=== PATIENT | female | born 2000 | race Caucasian/White ===

== ENCOUNTER → 2020-06-14 09:28 | Outpatient (CLI) | payer BC, SELFPAY ==
[2020-06-14 10:34] LABS: hCG Titer Quant., Serum 5197 mIU/mL (1-3)
== END ==
PROVIDERS: Referring Provider Obstetrics & Gynecology; Visit Provider Obstetrics & Gynecology
DX: O46.90 Antepartum hemorrhage, unspecified, unspecified trimester (principal); Z3A.00 Weeks of gestation of pregnancy not specified
CPT/HCPCS: 36415; 84702

== ENCOUNTER → 2020-06-14 14:46 | Outpatient (CLI) | payer BC, SELFPAY ==
--- NOTE | 2020-06-14 14:48 | US_ITS ---
STUDY: FIRST TRIMESTER OBSTETRICAL ULTRASOUND REASON FOR EXAM: Female, 20 years old. . Bleeding. Evaluate for . LMP: Unknown. TECHNIQUE: Transvaginal PRIOR ULTRASOUND: None. FINDINGS: There is fluid in the endometrial canal which contains a rounded echogenic structure. This may represent an early gestational sac and yolk sac. However, no pole is identified. The uterus measures 10.4 x 5.8 x 5.4 cm. There is no demonstrated uterine fibroid. The cervix is closed. The right ovary measures 2.9 x 2.5 x 2.4 cm. There is no right ovarian cyst. There is no visualized right adnexal mass or complex lesion. The left ovary measures 2.3 x 2.0 x 1.3 cm. There is no left ovarian cyst. There is no visualized left adnexal mass or complex lesion. There is no fluid in the cul de sac. US/Transvaginal w/Preg US IMPRESSION: Questionable early gestational sac and yolk sac, but no pole is identified. Therefore, there is no definite intrauterine gestation identified. No adnexal mass identified. These findings may be due to an early intrauterine gestation, a nonvisualized ectopic or a spontaneous . Follow-up sonography and beta hCG levels are recommended. Electronically Signed: Scott Castro MD at 16:27 EST Tel , Service support ,
== END ==
PROVIDERS: Referring Provider Obstetrics & Gynecology; Visit Provider Obstetrics & Gynecology
DX: O20.0 Threatened abortion (principal); Z3A.00 Weeks of gestation of pregnancy not specified
CPT/HCPCS: 76817

== ENCOUNTER → 2020-06-16 09:13 | Outpatient (CLI) | payer BC, SELFPAY ==
[2015-05-23 11:31] VITALS: BMI 28.1
[2020-06-16 10:09] LABS: hCG Titer Quant., Serum 8226 mIU/mL (1-3)
== END ==
PROVIDERS: Referring Provider Obstetrics & Gynecology; Visit Provider Obstetrics & Gynecology
DX: O46.90 Antepartum hemorrhage, unspecified, unspecified trimester (principal); Z3A.00 Weeks of gestation of pregnancy not specified
CPT/HCPCS: 36415; 84702

== ENCOUNTER → 2020-06-29 14:22 | Outpatient (CLI) | payer BC, SELFPAY ==
[2015-05-23 11:31] VITALS: BMI 28.1
--- NOTE | 2020-06-29 14:25 | US_ITS ---
STUDY: FIRST TRIMESTER OBSTETRICAL ULTRASOUND REASON FOR EXAM: Female, 20 years old viability LMP: 05/10/2020. TECHNIQUE: Transabdominal TECHNICAL QUALITY: Adequate. PRIOR ULTRASOUND: Comparison is made with prior examination dated 06/14/2020. FINDINGS: There is visualization of a single gestational sac in a normal intrauterine position. The mean sac diameter (MSD) measures 2.3 cm, indicating an estimated gestational age (EGA) of 7 weeks, 3 days. The gestational sac shape is within normal limits. There is a visualized yolk sac. The yolk sac measures 5.8 mm. The placenta is non-visualized. There is visualization of a live embryo. The crown-rump length (CRL) measures 1.08 cm, indicating an estimated gestational age (EGA) of 7 weeks, 2 days. There is demonstrated cardiac activity with a heart rate of 141 bpm. The estimated gestation age (EGA) by LMP is 7 weeks, 1 days. The estimated date of delivery (ANTIONE) by LMP is 02/14/2021. The estimated gestation age (EGA) by US is 7 weeks, 3 days. The estimated date of delivery (ANTIONE) by US is 02/12/2021. The uterus measures 11 cm x 6.4 cm x 5.4 cm. There is no demonstrated uterine fibroid. The cervix is closed. There is evidence of flow to adjacent subchorionic bleed. The larger measures 2 cm x 2.1 cm x 0.7 cm. The right ovary measures 2.8 cm x 2.2 cm x 2.5 cm. There is no right ovarian cyst. There is no visualized right adnexal mass or complex lesion. The left ovary measures 3 cm x 2.1 cm x 1.7 cm. There is no left ovarian cyst. There is no visualized left adnexal mass or complex lesion. There is no fluid in the cul de sac. US/Transvaginal w/Preg US IMPRESSION: Single live intrauterine gestation with a mean gestational age of 7 weeks and 3 days. 2. Small adjacent subchorionic bleed. Electronically Signed: Cassius Dinero MD at 15:54 EDT , Service support ,
== END ==
PROVIDERS: Referring Provider Obstetrics & Gynecology; Visit Provider Obstetrics & Gynecology
DX: O20.0 Threatened abortion (principal); Z3A.01 Less than 8 weeks gestation of pregnancy
CPT/HCPCS: 76817

== ENCOUNTER → 2020-07-06 12:17 | Outpatient (CLI) | payer BC, SELFPAY ==
--- NOTE | 2020-07-06 12:22 | US_ITS ---
STUDY: FIRST TRIMESTER OBSTETRICAL ULTRASOUND REASON FOR EXAM: Female, 20 years old viability LMP: 05/10/2020 TECHNIQUE: Transvaginal TECHNICAL QUALITY: Adequate. PRIOR ULTRASOUND: Comparison is made with prior study 06/29/2020. FINDINGS: There is visualization of a single gestational sac in a normal intrauterine position. The mean sac diameter (MSD) measures 3.04 cm, indicating an estimated gestational age (EGA) of 8 weeks, 3 days. The gestational sac shape is within normal limits. There is a visualized yolk sac. The yolk sac measures 5.6 mm. The placenta is non-visualized. There is visualization of a live embryo. The crown-rump length (CRL) measures 2.11 cm, indicating an estimated gestational age (EGA) of 8 weeks, 6 days. There is demonstrated cardiac activity with a heart rate of 164 bpm. The estimated gestation age (EGA) by LMP is 8 weeks, 1 days. The estimated date of delivery (ANTIONE) by LMP is 02/14/2021. The estimated gestation age (EGA) by US is 8 weeks, 5 days. The estimated date of delivery (ANTIONE) by US is 02/10/2021. The uterus measures 10.8 cm x 7.5 cm x 6.0 cm. There is no demonstrated uterine fibroid. The cervix is closed. There is evidence of 2 adjacent subchorionic hematoma. The larger subchorionic bleed measures 1.6 times by 2.8 cm x 1.4 cm. The right ovary measures 2 cm x 2.6 cm x 1.8 cm. There is no right ovarian cyst. There is no visualized right adnexal mass or complex lesion. The left ovary measures 2 cm x 1.9 cm x 1.8 cm. There is no left ovarian cyst. There is no visualized left adnexal mass or complex lesion. There is no fluid in the cul de sac. US/Transvaginal w/Preg US IMPRESSION: Single live intrauterine gestation with a mean gestational age of 8 weeks and 5 days. There are 2 small subchorionic hematoma. Electronically Signed: Cassius Dinero MD at 15:33 EDT , Service support ,
== END ==
PROVIDERS: Referring Provider Obstetrics & Gynecology; Visit Provider Obstetrics & Gynecology
DX: O36.80X0 Pregnancy with inconclusive fetal viability, not applicable or unspecified (principal); Z3A.08 8 weeks gestation of pregnancy
CPT/HCPCS: 76817

== ENCOUNTER → 2020-07-14 12:39 | Outpatient (CLI) | payer BC, SELFPAY ==
--- NOTE | 2020-07-14 12:39 | US_ITS ---
INDICATION: recheck subchorionic bleeds EXAMINATION: US OB Less Than 14 Weeks TECHNIQUE: Transvaginal (for optimal evaluation of the adnexa) pelvic ultrasound was performed. Grayscale, spectral waveform, and color flow Doppler evaluation of the adnexa. COMPARISON: 07/06/2020 FINDINGS: UTERUS: Measures 11.3 x 8 x 6.4 cm. RIGHT OVARY: Measures 3.9 x 1.8 x 2 cm. Normal. LEFT OVARY: Measures 3.2 x 2 x 1.6 cm. Normal. FREE FLUID: None. INTRAUTERINE GESTATIONAL SAC(s) (size/shape): Single. Measures 4 cm. YOLK SAC: Identified POLE: Identified CRL measures 3.3 cm. ESTIMATED GESTATION AGE: 9 weeks 4 days. HEART MOTION: 171 bpm. PLACENTA: Not visualized due to age. SUBCHORIONIC HEMORRHAGE: Increased size subchorionic hemorrhage near the fundus measures 2.7 x 2.2 x 1.4 cm, previously 1.5 x 1.4 x 0.8 cm. Decreased size of subchorionic hemorrhage near the internal os measures 2.4 x 1.9 x 0.4 cm, previously 2.8 x 1.4 x 1.6 cm. AMNIOTIC FLUID: Qualitatively normal. US/Init OB < 14Wks US IMPRESSION: Increased size of moderate subchorionic hematoma near the fundus. Slightly decreased size of small subchorionic hematoma near the internal os/cervical canal. Electronically Signed: Michael Hammond MD at 22:35 EDT Tel , Service support ,
== END ==
PROVIDERS: Referring Provider Obstetrics & Gynecology; Visit Provider Obstetrics & Gynecology
DX: O41.8X90 Other specified disorders of amniotic fluid and membranes, unspecified trimester, not applicable or unspecified (principal); O46.8X9 Other antepartum hemorrhage, unspecified trimester; Z3A.00 Weeks of gestation of pregnancy not specified
CPT/HCPCS: 76801

== ENCOUNTER → 2020-07-20 10:02 | Outpatient (CLI) | payer BC, SELFPAY ==
[2020-07-20 09:25] VITALS: BMI 32.8
[2020-07-20 10:42] LABS: Absolute Lymphocyte Count 1.79 X10^3/uL (0.83-4.51); Absolute Neutrophil Count 6.3 X10^3/uL (2.0-7.7); Basophil# 0.04 X10^3/uL; Basophil% 0.5 % (0-1); Eosinophil# 0.03 X10^3/uL; Eosinophils% 0.4 % (0-5); Hematocrit 36.9 % (37-47); Hemoglobin 12.9 g/dL (12.0-15.0); Lymphocyte # 1.79 X10^3/ul (0.83-4.51); Lymphocyte % 20.9 % (19-41); Mean Corpuscular Hgb 32.6 pg (27.0-32.0); Mean Corpuscular Volume 93.2 fL (81-99); Mean Platelet Vol. 9.5 fl (6.2-12.0); Monocyte# 0.35 X10^3/uL; Monocyte% 4.1 % (0-10); NRBC Flagged by Analyzer 0 % (0-5); Neutrophil # 6.31 X10^3/uL (2.7-7.7); Neutrophil % 73.6 % (47-70); Platelet Count 374 K/mm3 (150-450); RBC Distribution Width CV 11.4 % (11.6-14.6); RBC Distribution Width SD 38.5 fl (35.1-43.9); Red Blood Count 3.96 M/mm3 (4.2-5.4); White Blood Count 8.6 K/mm3 (4.4-11.0)
[2020-07-20 11:13] LABS: Glucose Challenge Gest 1H 50g 113 mg/dL (70-140)
[2020-07-20 11:31] LABS: NATERA MAILED SPECIMEN
[2020-07-20 11:56] LABS: HIV - WCH Non-Reactive (Nonreactive); Hepatitis B Surface Antigen Non-Reactive (Nonreactive); Hepatitis C Antibody Non-Reactive (Nonreactive); Rubella IgG Reactive (Nonreactive); Syphilis Antibodies Non-reactive
[2020-07-20 18:04] LABS: Amphetamine Urine VISTA NEGATIVE (<1000 ng/mL); Barbiturate Urine VISTA NEGATIVE (< 200 ng/mL); Benzodiazepine Urine VISTA NEGATIVE (< 200 ng/mL); Cocaine Urine VISTA NEGATIVE (< 300 ng/mL); Ecstacy Urine VISTA NEGATIVE (< 500 ng/mL); Methadone Urine VISTA NEGATIVE (< 300 ng/mL); PCP Urine VISTA NEGATIVE (< 25 ng/mL); THC Urine VISTA NEGATIVE (< 50 ng/mL); Vista UDS pH Range 6
== END ==
PROVIDERS: Referring Provider Obstetrics & Gynecology; Visit Provider Obstetrics & Gynecology
DX: O99.211 Obesity complicating pregnancy, first trimester (principal); E66.9 Obesity, unspecified; Z3A.00 Weeks of gestation of pregnancy not specified
CPT/HCPCS: 36415; 80307; 82950; 85025; 86703; 86762; 86780; 86803; 86850; 86900; 86901; 87086; 87088; 87340

== ENCOUNTER → 2020-11-10 08:39 | Outpatient (CLI) | payer MEDICAID, SELFPAY ==
[2020-10-13 14:50] VITALS: BMI 32.6
[2020-11-10 09:07] LABS: Absolute Lymphocyte Count 3.02 X10^3/uL (0.83-4.51); Basophil# 0.06 X10^3/uL; Basophil% 0.5 % (0-1); Eosinophil# 0.18 X10^3/uL; Eosinophils% 1.5 % (0-5); Hematocrit 35.4 % (37-47); Hemoglobin 12.4 g/dL (12.0-15.0); Lymphocyte # 3.02 X10^3/ul (0.83-4.51); Lymphocyte % 25.1 % (19-41); Mean Corpuscular Hgb 32.5 pg (27.0-32.0); Mean Corpuscular Volume 92.9 fL (81-99); Mean Platelet Vol. 10.2 fl (6.2-12.0); Monocyte# 0.67 X10^3/uL; Monocyte% 5.6 % (0-10); NRBC Flagged by Analyzer 0 % (0-5); Neutrophil % 66.6 % (47-70); Platelet Count 336 K/mm3 (150-450); RBC Distribution Width SD 40.8 fl (35.1-43.9); Red Blood Count 3.81 M/mm3 (4.2-5.4)
[2020-11-10 09:14] LABS: Glucose Challenge Gest 1H 50g 95 mg/dL (70-140)
== END ==
PROVIDERS: Referring Provider Obstetrics & Gynecology; Visit Provider Obstetrics & Gynecology
DX: Z34.80 Encounter for supervision of other normal pregnancy, unspecified trimester (principal); Z13.1 Encounter for screening for diabetes mellitus
CPT/HCPCS: 36415; 82950; 85025

== ENCOUNTER 2020-12-24 17:40 | Outpatient (CLI) | payer MEDICAID, SELFPAY ==
[2020-12-24 17:45] VITALS: BMI 34.7
[2020-12-24 17:50] VITALS: BP 133/92; PULSE 85
[2020-12-24 17:54] VITALS: BP 133/92; PULSE 85; TEMP 36.6
[2020-12-24 18:01] VITALS: BP 124/79; PULSE 81
[2020-12-24 18:01] LABS: ROM Internal Control Test YES-OK TO RESULT pt. (Internal QC)
[2020-12-24 18:21] LABS: ROM Patient Test Negative (Negative)
--- NOTE | 2020-12-25 09:54 | OB.TRI.PN_ITS ---
Progress Notes Date of Service: 12/24/20 Progress Note: Patient presents for triage evaluation secondary to loss of fluid. ROM negative. Not germaine. FHT: Moderate variability reactive no decelerations category I tracing [place]: No Contractions Assessment and plan: Reactive NST, reassuring maternal and status patient discharged to home to follow-up at next scheduled visit. See problem list details for additional plan information. Laboratory Studies: Laboratory Tests 12/24/20 Range/Units 17:56 Vag Amniotic Fld Detect Negative (Negative) Charges/Coding Procedures Urinary/Genital 52xxx-59xxx: 20732-07 non-stress test Interp
== END 2020-12-24 18:45 | disposition home or self-care (01) ==
LOC: WPOUT 17:41 → WP 17:42
PROVIDERS: Visit Provider Obstetrics & Gynecology
DX: O42.90 Premature rupture of membranes, unspecified as to length of time between rupture and onset of labor, unspecified weeks of gestation (principal); Z3A.00 Weeks of gestation of pregnancy not specified
CPT/HCPCS: 59025; 59050; 84112; 99218; G0378

== ENCOUNTER → 2020-12-29 10:26 | Outpatient (CLI) | payer MEDICAID, SELFPAY ==
[2020-12-29 11:01] LABS: Absolute Lymphocyte Count 2.46 X10^3/uL (0.83-4.51); Absolute Neutrophil Count 7.2 X10^3/uL (2.0-7.7); Basophil# 0.04 X10^3/uL; Basophil% 0.4 % (0-1); Eosinophil# 0.09 X10^3/uL; Eosinophils% 0.9 % (0-5); Hematocrit 36.2 % (37-47); Hemoglobin 12.7 g/dL (12.0-15.0); Lymphocyte # 2.46 X10^3/ul (0.83-4.51); Lymphocyte % 23.6 % (19-41); Mean Corp Hgb Conc 35.1 g/dL (32-36); Mean Corpuscular Hgb 32.6 pg (27.0-32.0); Mean Corpuscular Volume 93.1 fL (81-99); Mean Platelet Vol. 11.5 fl (6.2-12.0); Monocyte# 0.53 X10^3/uL; Monocyte% 5.1 % (0-10); NRBC Flagged by Analyzer 0 % (0-5); Neutrophil # 7.21 X10^3/uL (2.7-7.7); Neutrophil % 69.2 % (47-70); Platelet Count 267 K/mm3 (150-450); RBC Distribution Width CV 12.1 % (11.6-14.6); RBC Distribution Width SD 41.1 fl (35.1-43.9); Red Blood Count 3.89 M/mm3 (4.2-5.4); White Blood Count 10.4 K/mm3 (4.4-11.0)
[2020-12-29 11:32] LABS: ALB/GLOB Ratio 0.6 RATIO (0.9-2.4); AST(SGOT) 19 U/L (15-37); Alanine Aminotransfer ALT/SGPT 17 U/L (13-56); Albumin, Serum 2.5 g/dL (3.2-5.0); Alkaline Phosphatase 116 U/L (45-117); Anion Gap 7 (5-15); BUN 7 mg/dL (7-18); BUN/Creat Ratio 10.7 RATIO (10-20); Calcium,Total 9.1 mg/dL (8.5-10.1); Chloride 108 mmol/L (98-107); Creatinine, Serum 0.65 mg/dL (0.55-1.02); EST Glomerular Filtration Rate 122 mL/min (>60); Est Glom Filt Rate - Afr Amer 147 mL/min (>60); Globulin 4.2 g/dL (2.2-4.2); Glucose 97 mg/dL (74-106); Potassium 3.7 mmol/L (3.5-5.1); Protein, Total 6.7 g/dL (6.4-8.2); Sodium Level 137 mmol/L (136-145)
[2020-12-29 17:32] LABS: Protein, Urine (Random) 44.7 mg/dL (<11.9); Protein:Creat Ratio 253 mg/g CRE (0-200)
== END ==
PROVIDERS: Visit Provider Obstetrics & Gynecology
DX: O16.3 Unspecified maternal hypertension, third trimester (principal); Z3A.00 Weeks of gestation of pregnancy not specified
CPT/HCPCS: 36415; 80053; 82570; 84156; 85025

== ENCOUNTER 2021-01-02 17:55 | Outpatient (CLI) | payer MEDICAID, SELFPAY ==
[2021-01-02] VITALS (10 sets, daily range): BP systolic 132–166; BP diastolic 72–104; PULSE 61–75; TEMP 36.1; O2SAT 98; BMI 38.5
[2021-01-02 18:56] LABS: Hematocrit 35.9 % (37-47); Hemoglobin 12.9 g/dL (12.0-15.0); Mean Corp Hgb Conc 35.9 g/dL (32-36); Mean Corpuscular Hgb 33.3 pg (27.0-32.0); Mean Corpuscular Volume 92.8 fL (81-99); Mean Platelet Vol. 11.4 fl (6.2-12.0); Platelet Count 257 K/mm3 (150-450); RBC Distribution Width CV 12.2 % (11.6-14.6); RBC Distribution Width SD 41.3 fl (35.1-43.9); Red Blood Count 3.87 M/mm3 (4.2-5.4); White Blood Count 10.6 K/mm3 (4.4-11.0)
[2021-01-02 18:57] LABS: Protein, Urine (Random) 75.1 mg/dL (<11.9); Protein:Creat Ratio 381 mg/g CRE (0-200)
[2021-01-02 19:22] LABS: AST(SGOT) 19 U/L (15-37); Alanine Aminotransfer ALT/SGPT 16 U/L (13-56); EST Glomerular Filtration Rate 133 mL/min (>60); Est Glom Filt Rate - Afr Amer 161 mL/min (>60); Estimated Creatinine Clearance 112.86 ml/min; Uric Acid 6.8 mg/dL (2.6-6.0)
[2021-01-02] MEDS: Acetaminophen 500 MG Tablet 1000 MG PO (20:06)
[2021-01-02] MEDS: Betamethasone/Betamethasone 30 MG/5 ML Vial 12 MG IM (20:06)
[2021-01-02] MEDS: NIFEdipine 30 MG Tablet PO (21:48)
[2021-01-02 23:10] LABS: Group B Strep DNA By PCR POSITIVE (Negative); Probe Check PASS
[2021-01-03] VITALS (8 sets, daily range): BP systolic 123–134; BP diastolic 68–75; PULSE 65–80; TEMP 36.3–36.4; O2SAT 97
[2021-01-03 00:55] LABS: Chlamydia Trachomatis by PCR Negative (Negative); Neisserai gonorrhoeae by PCR Negative (Negative); Probe Check PASS; Sample Adequacy Control PASS; Specimen Processing Control PASS
[2021-01-03 05:52] LABS: Hematocrit 37.5 % (37-47); Mean Corp Hgb Conc 34.7 g/dL (32-36); Mean Corpuscular Hgb 33.6 pg (27.0-32.0); Mean Corpuscular Volume 96.9 fL (81-99); Mean Platelet Vol. 11.6 fl (6.2-12.0); Platelet Count 270 K/mm3 (150-450); RBC Distribution Width CV 12.2 % (11.6-14.6); RBC Distribution Width SD 42.5 fl (35.1-43.9); Red Blood Count 3.87 M/mm3 (4.2-5.4)
[2021-01-03 06:08] LABS: Protein, Urine (Random) 33.3 mg/dL (<11.9); Protein:Creat Ratio 300 mg/g CRE (0-200)
[2021-01-03 06:08] LABS: AST(SGOT) 21 U/L (15-37); Alanine Aminotransfer ALT/SGPT 16 U/L (13-56); EST Glomerular Filtration Rate 96 mL/min (>60); Est Glom Filt Rate - Afr Amer 117 mL/min (>60); Estimated Creatinine Clearance 84.65 ml/min; Uric Acid 6.8 mg/dL (2.6-6.0)
--- NOTE | 2021-01-03 07:32 | OB.TRI.HP_ITS ---
HPI - General HPI Narrative YRN HAN, is a 20 F who presents with elevated blood pressure. She has also had some intermittent headache and right upper quadrant pain. Upon evaluation in triage she had elevated blood pressures in the mild range and headache resolved with Tylenol. She does have preeclampsia based on blood pressures and elevated urine protein creatinine ratio. Maternal Data Information ANTIONE Calculator Estimated Delivery Date Method Current WG Current Estimate 02/09/21 Ultrasound #1 34w 5d PFSH PFSH Home Medications [id number] 1 each PO BID 05/13/15 [History Last Taken 01/01/21 21:00] blood pressure monitor #1 ea 12/29/20 [Rx Last Taken Unknown] nifedipine 30 mg tablet,extended release 24 hr 30 mg PO DAILY #30 tab 01/02/21 [Rx Last Taken Unknown] Allergy/AdvReac Type Severity Reaction Status Date / Time sulfamethoxazole Allergy Intermediate Rash Verified 01/02/21 18:05 [From Bactrim] trimethoprim [From Bactrim] Allergy Intermediate Rash Verified 01/02/21 18:05 Family History Mother Diabetes Surgical History History of tonsillectomy Social History adopted: No household members: [facility] number [facility] children: 2 current occupational status: employed current occupation: [employer] pets and animals: Yes history of recent travel: No sexually active: Yes Smoking Status: Never smoker second hand exposure: Yes alcohol intake: never substance use type: does not use seatbelt use: always do you feel safe at home: Yes additional social history: [place]- [employer]- [employer] (son Antonio age 4) History 2 Elective abortions Hx Para 1 Spontaneous abortions Hx # Term Pregnancies Ectopic pregnancies Hx # Pregnancies Multiple births # of living children 1 Past Pregnancies Del. Date Name GA/Weeks Outcome Route Bth Weight Gen Labor Lgth Anesthesia Del Locatn Provider FOB 05/23/15 [place] 38 live - full term 7lbs 14oz Female 9 hours epidural [facility] Delivery Date: 05/23/15 Nuchal cord x two reduced Darcy Ferrara Visit Details Expected Delivery Route/Plan Labor Preferences- CB/BF classes: no labor support person: Rajesh labor intervention preferences: [] pain management options preferred: epidural cut cord/dad catch: yes : no PP control planned: discussed possible routes of delivery and associated risks: [] special requests: [] Plans covid status: non immune flu vaccine: [] tdap vaccine: given rhogam: na LARC form signed: yes Problem list reviewed and updated with the most current plan of care details and appropriate orders placed. Relevant counseling for the gestational age provided. Continue routine care and follow up unless otherwise noted in visit notes/problem list details OB Flowsheet Initial Weight: 191 lb Date -?-?-?-?-?-?-?-?-?-?-?-?- EGA Weight BP Urine Prot -?-?-?--?-?-?-?-?-?-?-?-?- Glucose FHR FuHt Pres Dilation -?-?-?-?-?-?-?-?-?--?-?-?- Effaced St Visit Note 07/20/20 -?-?-?-?-?-?-?-?-?-?-?-?- 10w 6d 191 lb 2 oz (+2 oz) 110/82 -?-?-?-?-?-?-?-?-?-?-?-?- 165 -?-?-?-?-?-?-?-?-?-?-?-?- SM- SC hematoma 8mm x 1 cm, crl cons and fht present 08/18/20 -?-?-?-?-?-?-?-?-?-?-?-?- 15w 0d 190 lb 6 oz (-10 oz) 120/86 -?-?-?-?-?-?-?-?-?-?-?-?- 150 -?-?-?-?-?-?-?-?-?-?-?-?- GP - no cramping or bleeding. Anatomy ordered. 09/15/20 -?-?-?-?-?-?-?-?-?-?-?-?- 19w 0d 189 lb (-2 lb) 122/80 Negative -?-?-?-?-?-?-?-?-?-?-?-?- Negative 150 -?-?-?-?-?-?-?-?-?-?-?-?- SM- no vb lof cr amping 10/13/20 -?-?-?-?-?-?-?-?-?-?-?-?- 23w 0d 191 lb (+0 oz) 118/80 Negative -?-?-?-?-?-?-?-?-?-?-?-?- Negative 145 -?-?-?-?-?-?-?-?-?-?-?-?- Sm- no vb crampi ng anatomy reviewed 11/10/20 -?-?-?-?-?-?-?-?-?-?-?-?- 27w 0d 196 lb 4 oz (+5 lb 4 oz) 120/82 Negative -?-?-?-?-?-?-?-?-?-?-?-?- Negative 155 27 -?-?-?-?-?-?-?-?-?-?-?-?- GP - no LOF, VB, DFM, ctx. 28w labs done and nl. 12/07/20 -?-?-?-?-?-?-?-?-?-?-?-?- 30w 6d 199 lb 6 oz (+8 lb 6 oz) 116/72 Negative -?-?-?-?-?-?-?-?-?-?-?-?- Negative 155 30 -?-?-?-?-?-?-?-?-?-?-?-?- MH-No VB, LOF. Good FM. Larc 12/29/20 -?-?-?-?-?-?-?-?-?-?-?-?- 34w 0d 208 lb 2 oz (+17 lb 2 oz) 144/94 Trace -?-?-?-?-?-?-?-?-?-?-?-?- Negative 130 34 -?-?-?-?-?-?-?-?-?-?-?-?- GP - no LOF, VB, DFM, ctx. BP elevated. BP cuff sent to pharmacy. PreE labs ordered. 01/02/21 -?-?-?-?-?-?-?-?-?-?-?-?- 34w 4d 203 lb 11.314 oz (+12 lb 11.314 oz) 150/104 155/98 154/98 156/103 165/90 151/85 166/94 132/72 141/72 123/68 134/71 124/72 -?-?-?-?-?-?-?-?-?-?-?-?- -?-?-?-?-?-?-?-?-?-?-?-?- Physical Exam Const alert, oriented x3 and no apparent distress HEENT Head and Scalp: normocephalic and atraumatic Eyes EOMs intact bilaterally Neck full ROM and no lymphadenopathy Chest inspection of chest normal Resp normal respiratory effort GI GI Narrative: gravid, abdomen nontender, AGA Neuro no focal motor deficits Motor Exam: clonus absent NST FHR Rate Baby A Baseline: 140 Variability:: Moderate Accelerations:: 15 x 15 Decelerations:: None NST Reactive:: Yes FHR Category:: Category I Uterine Activity:: no regular Assessment & Plan (1) Pre-eclampsia in third trimester: COMMENT: Diagnosed 34 weeks. Celestone given 01/02-. Procardia 30 mg XL. Precautions reviewed. Plan twice weekly visits with weekly NST and weekly blood pressure in office with labs. Deliver at 37 weeks. PLAN: Patient monitored overnight and blood pressures within normal range on Procardia, patient asymptomatic and reassuring NST. Plan DC home follow-up for second dose of Celestone tonight (2) : QUALIFIERS: Weeks of gestation: 34 weeks Qualified Code(s): Z3A.34 - 34 weeks gestation of COMMENT: NIPT- low risk male, declined carrier and ntd screening. nl anatomy (3) Supervision of other normal : COMMENT: PRR ANTIONE: 02/09/21 PC: [place] Beltranance: Rajesh PC: Antonio age 4 Charges/Coding Procedures Urinary/Genital 52xxx-59xxx: 70175-96 non-stress test Interp Multi Select Codes Visit Charges Office Visit/Consults: 90035 OV L3 Est
--- NOTE | 2021-01-03 08:00 | US_ITS ---
STUDY: SECOND AND THIRD TRIMESTER OBSTETRICAL ULTRASOUND - LIMITED REASON FOR EXAM: Female, 20 years old Pre-e -- Growth US LMP: 05/05/2020 PRIOR ULTRASOUND: Comparison is made with prior study 07/14/2020. TECHNIQUE: Transabdominal TECHNICAL QUALITY: Adequate. FINDINGS: There is a single intrauterine fetus. The fetus is in a cephalic presentation. There is demonstrated cardiac activity with a heart rate of 142 bpm. There is a normal amniotic fluid volume. The largest amniotic fluid pocket measures 3.4 cm x 4.3 cm. The amniotic fluid index (BOONE) is 12.34 cm. The placenta is anterior in location and is not low lying. There are Grade 2 placental changes. The cervix measures 3.1 cm in length. BIOMETRY: BPD: 8.57 cm: 34 weeks, 3 days HC: 30.52 cm: 33 weeks, 6 days AC: 30.41 cm: 34 weeks, 2 days FL: 6.71 cm: 30 weeks, 3 days Age by LMP: 34 weeks, 5 days. ANTIONE by LMP: 02/09/2021. age by prior US: 34 weeks, 5 days. ANTIONE by prior US: 02/09/2021. age by current US: 33 weeks, 6 days. ANTIONE by current US: 02/15/2021. Estimated weight: 2459 grams, +/- 369 grams, 41.4 percentile. US/OB Limited With Biometrics IMPRESSION: Single live uterine gestation with a mean gestational age of 34 weeks and 5 days. The measurements obtained today fall within normal expected range. Electronically Signed: Cassius Dinero MD at 8:58 EDT , Service support ,
== END 2021-01-03 09:24 | disposition home or self-care (01) ==
LOC: WPOUT 18:00 → WP 18:00
PROVIDERS: Visit Provider Obstetrics & Gynecology
DX: O14.93 Unspecified pre-eclampsia, third trimester (principal); O26.893 Other specified pregnancy related conditions, third trimester; R10.11 Right upper quadrant pain; Z3A.34 34 weeks gestation of pregnancy
CPT/HCPCS: 36415; 59025; 59050; 76816; 82565; 82570; 84156; 84450; 84460; 84550; 85027; 87491; 87591; 87653; 96372; 99218; G0378; J0702

== ENCOUNTER 2021-01-03 19:50 | Outpatient (CLI) | payer MEDICAID, SELFPAY ==
[2021-01-03 19:59] VITALS: BMI 36.3
[2021-01-03] MEDS: Betamethasone/Betamethasone 30 MG/5 ML Vial 12 MG IM (20:22)
--- NOTE | 2021-01-04 18:11 | OB.TRI.PN ---
Progress Notes Date of Service: 01/03/21 Progress Note: celestone given for prematurity Assessment & Plan (1) Pre-eclampsia in third trimester: COMMENT: Diagnosed 34 weeks. Celestone given 01/02-. Procardia 30 mg XL. Precautions reviewed. Plan twice weekly visits with weekly NST and weekly blood pressure in office with labs. Deliver at 37 weeks.
== END 2021-01-03 20:25 | disposition home or self-care (01) ==
LOC: WPOUT 19:56 → WP 19:57
PROVIDERS: Referring Provider Obstetrics & Gynecology; Visit Provider Obstetrics & Gynecology
DX: O14.93 Unspecified pre-eclampsia, third trimester (principal); Z3A.00 Weeks of gestation of pregnancy not specified
CPT/HCPCS: 96372; 99218; G0378; J0702

== ENCOUNTER → 2021-01-05 16:07 | Outpatient (CLI) | payer MEDICAID, SELFPAY ==
[2021-01-05 16:48] LABS: Protein, Urine (Random) 83.5 mg/dL (<11.9); Protein:Creat Ratio 207 mg/g CRE (0-200)
== END ==
PROVIDERS: Referring Provider Obstetrics & Gynecology; Visit Provider Obstetrics & Gynecology
DX: O14.93 Unspecified pre-eclampsia, third trimester (principal); Z3A.00 Weeks of gestation of pregnancy not specified
CPT/HCPCS: 82570; 84156

== ENCOUNTER 2021-01-10 18:15 | Inpatient (IN) | payer MEDICAID, SELFPAY ==
[2021-01-10] VITALS (43 sets, daily range): BP systolic 124–155; BP diastolic 80–105; PULSE 76–115; RESP 16–18; TEMP 36.6–37.3; O2SAT 93–98; BMI 36.1
[2021-01-10 09:33] LABS: Absolute Neutrophil Count 8.6 X10^3/uL (2.0-7.7); Basophil# 0.06 X10^3/uL; Basophil% 0.5 % (0-1); Eosinophil# 0.07 X10^3/uL; Eosinophils% 0.5 % (0-5); Hematocrit 37.2 % (37-47); Hemoglobin 13.1 g/dL (12.0-15.0); Lymphocyte % 25.9 % (19-41); Mean Corp Hgb Conc 35.2 g/dL (32-36); Mean Corpuscular Hgb 33.2 pg (27.0-32.0); Mean Corpuscular Volume 94.2 fL (81-99); Mean Platelet Vol. 11.2 fl (6.2-12.0); Monocyte# 0.63 X10^3/uL; Monocyte% 4.9 % (0-10); NRBC Flagged by Analyzer 0 % (0-5); Neutrophil # 8.55 X10^3/uL (2.7-7.7); Neutrophil % 67.3 % (47-70); Platelet Count 294 K/mm3 (150-450); RBC Distribution Width SD 41.1 fl (35.1-43.9); Red Blood Count 3.95 M/mm3 (4.2-5.4); White Blood Count 12.7 K/mm3 (4.4-11.0)
[2021-01-10 09:48] LABS: ALB/GLOB Ratio 0.6 RATIO (0.9-2.4); AST(SGOT) 21 U/L (15-37); Alanine Aminotransfer ALT/SGPT 17 U/L (13-56); Albumin, Serum 2.7 g/dL (3.2-5.0); Alkaline Phosphatase 130 U/L (45-117); Anion Gap 8 (5-15); BUN 11 mg/dL (7-18); BUN/Creat Ratio 15.2 RATIO (10-20); Calcium,Total 8.9 mg/dL (8.5-10.1); Chloride 107 mmol/L (98-107); Creatinine, Serum 0.72 mg/dL (0.55-1.02); EST Glomerular Filtration Rate 108 mL/min (>60); Est Glom Filt Rate - Afr Amer 131 mL/min (>60); Globulin 4.2 g/dL (2.2-4.2); Glucose 103 mg/dL (74-106); Potassium 3.5 mmol/L (3.5-5.1); Protein, Total 6.9 g/dL (6.4-8.2); Sodium Level 139 mmol/L (136-145)
[2021-01-10 11:24] LABS: Protein, Urine (Random) 80.2 mg/dL (<11.9); Protein:Creat Ratio 642 mg/g CRE (0-200)
[2021-01-10] MEDS: Metoclopramide 10 MG Tablet PO (16:49)
[2021-01-10] MEDS: DiphenhydrAMINE 25 MG Capsule PO (16:49)
[2021-01-10] MEDS: Lactated Ringers 1,000 ML 50 ML IV (18:50)
[2021-01-10] MEDS: Magnesium Sulfate 4gm/100mL 4 GM/100 ML IV.SOLN. IV (18:53)
[2021-01-10 19:04] LABS: Absolute Lymphocyte Count 2.91 X10^3/uL (0.83-4.51); Absolute Neutrophil Count 7.4 X10^3/uL (2.0-7.7); Basophil# 0.05 X10^3/uL; Basophil% 0.4 % (0-1); Eosinophil# 0.04 X10^3/uL; Eosinophils% 0.4 % (0-5); Hematocrit 35.5 % (37-47); Hemoglobin 12.7 g/dL (12.0-15.0); Lymphocyte # 2.91 X10^3/ul (0.83-4.51); Lymphocyte % 25.9 % (19-41); Mean Corp Hgb Conc 35.8 g/dL (32-36); Mean Corpuscular Hgb 33.7 pg (27.0-32.0); Mean Corpuscular Volume 94.2 fL (81-99); Mean Platelet Vol. 11.5 fl (6.2-12.0); Monocyte# 0.68 X10^3/uL; Monocyte% 6.1 % (0-10); NRBC Flagged by Analyzer 0 % (0-5); Neutrophil # 7.44 X10^3/uL (2.7-7.7); Neutrophil % 66.3 % (47-70); Platelet Count 288 K/mm3 (150-450); RBC Distribution Width CV 12.1 % (11.6-14.6); RBC Distribution Width SD 41.7 fl (35.1-43.9); Red Blood Count 3.77 M/mm3 (4.2-5.4); White Blood Count 11.2 K/mm3 (4.4-11.0)
[2021-01-10] MEDS: Magnesium Sulfate 4gm/100mL 2 GM/50 ML IV.SOLN. IV (19:17)
--- NOTE | 2021-01-10 19:20 | HP.PCM.OB_ITS ---
HPI - General General Date of Admission: 01/10/21 HPI Narrative YRN HAN, is a 20 F at 35 weeks 5 days who presents with elevated blood pressure and persistent headache in spite of Tylenol, Reglan, and Benadryl. Patient admitted for induction of labor for preeclampsia with severe features. Reports headache, denies vision changes, chest pain, shortness of breath, right upper quadrant, epigastric pain. Maternal Data Information ANTIONE Calculator Estimated Delivery Date Method Current WG Current Estimate 02/09/21 Ultrasound #1 35w 5d PFSH PFSH Medical History Positive GBS test Home Medications [id number] acid 1 each PO BID 05/13/15 [History Last Taken 01/09/21 20:00 1] blood pressure monitor #1 ea 12/29/20 [Rx Last Taken Unknown] nifedipine 30 mg tablet,extended release 24 hr 30 mg PO DAILY #30 tab 01/02/21 [Rx Last Taken 01/10/21 12:30 30 mg] Allergy/AdvReac Type Severity Reaction Status Date / Time sulfamethoxazole Allergy Intermediate Rash Verified 01/10/21 08:40 [From Bactrim] trimethoprim [From Bactrim] Allergy Intermediate Rash Verified 01/10/21 08:40 Family History Mother Diabetes Surgical History History of tonsillectomy Social History adopted: No household members: family housing: [place] number of children: 2 current occupational status: employed current occupation: [employer] pets and animals: Yes history of recent travel: No sexually active: Yes Smoking Status: Never smoker second hand exposure: Yes alcohol intake: never substance use type: does not use seatbelt use: always do you feel safe at home: Yes additional social history: Mary Lou Mena- [employer] (son Antonio age 4) History 2 Elective abortions Hx Para 1 Spontaneous abortions Hx # Term Pregnancies Ectopic pregnancies Hx # Pregnancies Multiple births # of living children 1 Past Pregnancies Del. Date Name GA/Weeks Outcome Route Bth Weight Gen Labor Lgth Anesthesia Del Locataj Provider FOB 05/23/15 Alexandria 38 live - full term 7lbs 14oz Female [facility] Delivery Date: 05/23/15 Nuchal cord x two reduced Darcy Ferrara Visit Details Expected Delivery Route/Plan Labor Preferences- CB/BF classes: no labor support person: Rajesh labor intervention preferences: [] pain management options preferred: epidural cut cord/dad catch: yes : no PP control planned: discussed possible routes of delivery and associated risks: [] special requests: [] Plans covid status: non immune flu vaccine: [] tdap vaccine: given rhogam: na LARC form signed: yes Problem list reviewed and updated with the most current plan of care details and appropriate orders placed. Relevant counseling for the gestational age provided. Continue routine care and follow up unless otherwise noted in visit notes/problem list details OB Flowsheet Initial Weight: 191 lb Date -?-?-?-?-?-?-?-?-?-?-?-?- EGA Weight BP Urine Prot -?-?-?-?-?-?-?-?-?-?-?-?- Glucose FHR FuHt Pres Dilation -?-?-?-?-?-?-?-?-?-?-?-?- Effaced St Visit Note 07/20/20 -?-?-?-?-?-?-?-?-?-?-?-?- 10w 6d 191 lb 2 oz (+2 oz) 110/82 -?-?-?-?-?-?-?-?-?-?-?-?- 165 -?-?-?-?-?-?-?-?-?-?-?-?- SM- SC hematoma 8mm x 1 cm, crl cons and fht present 08/18/20 -?-?-?-?-?-?-?-?-?-?-?-?- 15w 0d 190 lb 6 oz (-10 oz) 120/86 -?-?-?-?-?-?-?-?-?-?-?-?- 150 -?-?-?-?-?-?-?-?-?-?-?-?- GP - no cramping or bleeding. Anatomy ordered. 09/15/20 -?-?-?-?-?-?-?-?-?-?-?-?- 19w 0d 189 lb (-2 lb) 122/80 Negative -?-?-?-?-?-?-?-?-?-?-?-?- Negative 150 -?-?-?-?-?-?-?-?-?-?-?-?- SM- no vb lof cr amping 10/13/20 -?-?-?-?-?-?-?-?-?-?-?-?- 23w 0d 191 lb (+0 oz) 118/80 Negative -?-?-?-?-?-?-?-?-?-?-?-?- Negative 145 -?-?-?-?-?-?-?-?-?-?-?-?- Sm- no vb crampi ng anatomy reviewed 11/10/20 -?-?-?-?-?-?-?-?-?-?-?-?- 27w 0d 196 lb 4 oz (+5 lb 4 oz) 120/82 Negative -?-?-?-?-?-?-?-?-?-?-?-?- Negative 155 27 -?-?-?-?-?-?-?-?-?-?-?-?- GP - no LOF, VB, DFM, ctx. 28w labs done and nl. 12/07/20 -?-?-?-?-?-?-?-?-?-?-?-?- 30w 6d 199 lb 6 oz (+8 lb 6 oz) 116/72 Negative -?-?-?-?-?-?-?-?-?-?-?-?- Negative 155 30 -?-?-?-?-?-?-?-?-?-?-?-?- MH-No VB, LOF. Good FM. Larc 12/29/20 -?-?-?-?-?-?-?-?-?-?-?-?- 34w 0d 208 lb 2 oz (+17 lb 2 oz) 144/94 Trace -?-?-?-?-?-?-?-?-?-?-?-?- Negative 130 34 -?-?-?-?-?-?-?-?-?-?-?-?- GP - no LOF, VB, DFM, ctx. BP elevated. BP cuff sent to pharmacy. PreE labs ordered. 01/02/21 -?-?-?-?-?-?-?-?-?-?-?-?- 34w 5d 203 lb 11.314 oz (+12 lb 11.314 oz) 150/104 155/98 154/98 156/103 165/90 151/85 166/94 132/72 141/72 123/68 134/71 124/72 124/75 -?-?-?-?-?-?-?-?-?-?-?-?- -?-?-?-?-?-?-?-?-?-?-?-?- 01/05/21 -?-?-?-?-?-?-?-?-?-?-?-?- 35w 0d 213 lb 4 oz (+22 lb 4 oz) 130/96 1+ -?-?-?-?-?-?-?-?-?-?-?-?- Negative 135 35 -?-?-?-?-?-?-?-?-?-?-?-?- GP - no LOF, VB, DFM, ctx. Denies VILLATORO, VC, chest pain, SOB. To start 2x/wk NSTs next week. 01/10/21 -?-?-?-?-?-?-?-?-?-?-?-?- 35w 5d 213 lb 6 oz (+22 lb 6 oz) 148/102 118/82 2+ -?-?-?-?-?-?-?-?-?-?-?-?- Negative 130 140 35 -?-?-?-?-?-?-?-?-?-?-?-?- GP - no LOF, VB, DFM, ctx. NST reactive. No VILLATORO, VC, CP, SOB. PreE labs ordered today. 01/10/21 -?-?-?-?-?-?-?-?-?-?-?-?- 35w 5d 204 lb (+13 lb) 138/95 137/88 124/80 151/95 142/93 134/89 135/98 141/98 155/95 146/91 149/91 149/95 149/95 153/97 153/97 -?-?--?-?-?-?-?-?-?-?-?-?- -?-?-?-?-?-?-?-?-?-?-?-?- NST FHR Rate Baby A Baseline: 120 Variability:: Moderate Accelerations:: 15 x 15 Decelerations:: None NST Reactive:: Yes FHR Category:: Category I Uterine Activity:: irritability ROS Eyes Eyes: Reports systems reviewed and no addt'l complaints, except as documented ENT HEENT: Reports systems reviewed and no addt'l complaints, except as documented Cardiovascular Cardiovascular: Reports systems reviewed and no addt'l complaints, except as documented Respiratory/Chest Respiratory/Chest: Reports systems reviewed and no addt'l complaints, except as documented Gastrointestinal Gastrointestinal: Reports systems reviewed and no addt'l complaints, except as documented Genitourinary Genitourinary: Reports systems reviewed and no addt'l complaints, except as documented Musculoskeletal Musculoskeletal: Reports systems reviewed and no addt'l complaints, except as documented Integumentary Integumentary: Reports systems reviewed and no addt'l complaints, except as documented Neurologic Neurologic: Reports systems reviewed and no addt'l complaints, except as documented Psychiatric Psychiatric: Reports systems reviewed and no addt'l complaints, except as documented Endocrine Endocrinology: Reports systems reviewed and no addt'l complaints, except as documented Hematologic/Lymphatic Hematologic/Lymphatic: Reports systems reviewed and no addt'l complaints, except as documented Allergic/Immunologic Allergic/Immunologic: Reports systems reviewed and no addt'l complaints, except as documented Vital Signs Vital Signs Vital Signs: 01/10/21 16:22 01/10/21 16:27 01/10/21 16:37 Pulse Rate 98 93 91 Blood Pressure 138/95 H 137/88 H 124/80 H BP Systolic 138 137 124 BP Diastolic 95 88 80 01/10/21 16:53 01/10/21 17:07 01/10/21 17:22 Pulse Rate 83 88 90 Blood Pressure 151/95 H 142/93 H 134/89 H BP Systolic 151 142 134 BP Diastolic 95 93 89 01/10/21 17:37 01/10/21 17:53 01/10/21 18:49 Pulse Rate 90 86 82 Blood Pressure 135/98 H 141/98 H 155/95 H BP Systolic 135 141 155 BP Diastolic 98 98 95 01/10/21 18:52 01/10/21 19:07 Pulse Rate 77 95 Blood Pressure 146/91 H 149/95 H BP Systolic 146 149 BP Diastolic 91 95 Weight Weight: 204 lb Body Mass Index (BMI) 36.1 Physical Exam Const alert, oriented x3, no apparent distress, average body habitus, healthy appearing and well nourished HEENT normocephalic and moist oral mucous membranes Head and Scalp: atraumatic Eyes PERRL and EOMs intact bilaterally Neck full ROM Resp normal respiratory effort, no retractions and no use of accessory muscles Cardio regular rate and regular rhythm GI soft to palpation, non-tender and non-distended Manual OB Exam: dilated 2, effaced 50 and station -3 Extremity normal to inspection and full ROM Skin no rashes or lesions noted Neuro no focal motor deficits and no sensory deficits noted Psych mental status grossly normal, affect normal, speech normal and activity/motor behavior normal Labs Labs Labs: Blood Type O POSITIVE Antibody Screen NEGATIVE Hct 35.5 % (37-47) L Hgb 12.7 g/dL (12.0-15.0) Obstetrics US Syphilis Total Ab Non-reactive VZV IgG Antibody 289 index (Immune >165) Rubella IgG Antibody Reactive (Nonreactive) Hep Bs Antigen Non-Reactive (Nonreactive) HIV 1&2 Antibody Non-Reactive (Nonreactive) C.trachomatis DNA (PCR) Negative (Negative) Glucose 1 Hr 50 gm 95 mg/dL (70-140) Group B Strep DNA POSITIVE (Negative) H Rhogam given: No Assessment & Plan (1) : QUALIFIERS: Weeks of gestation: 35 weeks Qualified Code(s): Z3A.35 - 35 weeks gestation of COMMENT: NIPT- low risk male, declined carrier and ntd screening. nl anatomy (2) Supervision of other normal : COMMENT: PRR ANTIONE: 02/09/21 PC: Alexandria Ross: Rajesh PC: Antonio age 4 (3) Pre-eclampsia in third trimester: COMMENT: Diagnosed 34 weeks. Celestone given 01/02-. Procardia 30 mg XL. Precautions reviewed. Plan twice weekly visits with weekly NST and weekly blood pressure in office with labs. Deliver at 37 weeks. PLAN: Presented to triage with persistent headache and worsening elevated blood pressures at home Patient had taken Tylenol and caffeine prior to arrival and was given Reglan and Benadryl without relief Blood pressures persistently mild range after arrival Patient diagnosed with preeclampsia with severe features Preeclampsia labs done earlier in the day were normal aside from elevated protein to creatinine ratio Magnesium sulfate started for seizure prophylaxis (4) Positive GBS test: COMMENT: PCN in labor (5) Encounter for induction of labor: PLAN: Patient presents IOL, plan management for with cytotec then pitocin/AROM. Pain management: plans epidural. GBS positive - PCN to start when starting pitocin. Management of any complications: none I have reviewed the ON LICENSE OF [facility] and made any clinically relevant updates.
[2021-01-10] MEDS: Magnesium Sulfate 20 GM/500 ML BAG IV (19:28)
[2021-01-10] MEDS: miSOPROStol 25 MCG TABLET VAGINAL (19:52)
[2021-01-10] MEDS: Acetaminophen 500 MG Tablet PO (20:10)
[2021-01-11] VITALS (107 sets, daily range): BP systolic 104–156; BP diastolic 53–101; PULSE 61–123; RESP 16–24; TEMP 36.1–36.9; O2SAT 96–100
[2021-01-11] MEDS: miSOPROStol 25 MCG TABLET PO (00:36)
[2021-01-11] MEDS: Lactated Ringers 1,000 ML 50 ML IV (01:59)
[2021-01-11] MEDS: Ondansetron 4 MG/2 ML Vial IV (02:31)
[2021-01-11] MEDS: 0.9% Saline Lock 10 ML Syringe IV (02:31)
[2021-01-11] MEDS: Oxytocin 30 units/NS 500 ml 30 UNITS/500 ML IV.SOLN IV (05:07)
[2021-01-11] MEDS: Magnesium Sulfate 20 GM/500 ML BAG IV ×3 (05:08→22:55)
[2021-01-11] MEDS: Penicillin G 3,000,000 Units 50 ML 100 UNITS IV ×3 (08:58→17:34)
[2021-01-11] MEDS: Lactated Ringers 500 ML 999 ML IV ×2 (12:40→14:14)
[2021-01-11] MEDS: NIFEdipine 30 MG Tablet PO (12:44)
[2021-01-11] MEDS: fentaNYL-bupivacaine (epidural) 100 ML BAG EPIDURAL ×2 (13:27→18:20)
[2021-01-11] MEDS: Amnioinfusion- 0.9% NS 1,000 ML IV.SOLN. 1000 ML INTRA-UTER (14:20)
[2021-01-11] MEDS: Lactated Ringers 1,000 ML 200 ML IV (15:25)
--- NOTE | 2021-01-11 16:44 | NURSING ---
1620 IV decreased to allow for fluid restriction and po intake
[2021-01-11] MEDS: Oxytocin 30 units/NS 500 ml 30 UNITS/500 ML IV.SOLN 334 UNITS IV (21:22)
--- NOTE | 2021-01-11 21:28 | EX.PCM.OBRPT ---
Assessment & Plan (1) Spontaneous vaginal delivery: (2) Encounter for induction of labor: (3) Positive GBS test: COMMENT: PCN in labor (4) Pre-eclampsia in third trimester: COMMENT: Diagnosed 34 weeks. Celestone given 01/02-. Procardia 30 mg XL. Precautions reviewed. Plan twice weekly visits with weekly NST and weekly blood pressure in office with labs. Deliver at 37 weeks. (5) Supervision of other normal : COMMENT: PRR ANTIONE: 02/09/21 PC: Alexandria Ross: Rajesh PC: Antonio age 4 (6) : QUALIFIERS: Weeks of gestation: 35 weeks Qualified Code(s): Z3A.35 - 35 weeks gestation of COMMENT: NIPT- low risk male, declined carrier and ntd screening. nl anatomy Maternal Data Information ANTIONE Calculator Estimated Delivery Date Method Current WG Current Estimate 02/09/21 Ultrasound #1 35w 6d Vaginal Delivery Maternal Presentation Maternal Presentation: Medically Indicated Induction Maternal Presentation: 20-year-old G2, P1 at 35 weeks gestation admitted for induction of labor for preeclampsia with severe features due to headache. Patient was induced with Cytotec followed by Pitocin. Type of Induction: Pitocin and Cytotec Medical Reason for Induction: Preeclampsia, eclampsia Operative Information Date of Procedure: 01/11/21 Pre-Operative Diagnosis: Intrauterine at 35 weeks gestation, preeclampsia with severe features Post-Operative Diagnosis: Same Surgery / Procedure Performed: Spontaneous Vaginal Delivery Type of Anesthesia: Epidural Drain: Boykin to straight drain Estimated Blood Loss: 100 Findings Description of Procedure: Patient began pushing and delivered the head in the JULIA presentation. The head was delivered atraumatically and loose nuchal cord x1 was noted and delivered through. The anterior and posterior shoulders delivered without complication followed by the rest of the infant and the infant was placed on the maternal abdomen. Delayed cord clamping was employed for approximately 60 seconds. Cord was clamped and cut and gentle traction was applied to the cord and the placenta delivered spontaneously immediately following it was noted to be intact with three-vessel cord. The perineum and vagina were inspected and noted to have no laceration. EBL was 100 cc. Patient and infant tolerated delivery well. Presentation: Vertex and JULIA Amniotic Membrane Rupture Type: Spontaneous Amniotic Fluid Description: Clear Placental Delivery Description: Spontaneous Placenta Disposition: [facility] Cord Vessel Description: 3 Vessels Cord Entanglement: Around neck x 1, loose Nuchal Cord Compression: Without compression Cord Gases: ABG and VBG Infant A Gender: Male Delayed Cord Clamping: No Post Vaginal Delivery Medications Given After Delivery: IV Pitocin Episiotomy Description: None Laceration: None Complication Complications: None Admit VTE Documentation VTE Present on Admission: No Procedures Urinary/Genital [id number]: [id number] Vaginal Delivery+PP Care([facility])
--- NOTE | 2021-01-11 21:35 | PCM.DC ---
Discharge Instructions Diet Discharge Diet: No restrictions Activity Discharge Activity: Return to Normal Activity, May Not Drive (while taking narcotic pain medications.) and May Shower May resume sexual activity in: 4-6 weeks Dressing / Incision Call your doctor if your incision/area has: Continuous Slow Oozing, Sudden Increased Bleeding, Increased Pain/ Swelling, Increased Redness and Foul Smelling Discharge Follow Up Care When: Call to make an appointment with your doctor in 6 weeks. If you had elevated Blood Pressure or 4th degree laceration you will need to be seen in 2 weeks. Test Results: Test results from this visit will be discussed in further detail at your follow-up appointment, if applicable. Discharge Plan Admission Admit Date/Time: 01/10/21 18:15 Attending Provider: Dianna Keith Primary Care Provider: Care PhysicianAleida Primary Instructions Patient Instructions: After a Vaginal Discharge Orders/Prescriptions Prescriptions: New ibuprofen 800 mg tablet 800 mg PO Q8H PRN (Reason: pain) Qty: 60 RF: 1 Continued (DME) blood pressure monitor Kit See Rx Instructions .ROUTE .MEDSUPPLY Qty: 1 RF: 0 [id number] acid 1 EACH tablet 1 each PO BID RF: 0 nifedipine [Procardia XL] 30 mg tablet extended release 24hr 30 mg PO DAILY Qty: 30 RF: 1 Referrals / Follow Up: Care Physician,Aleida Primary [Primary Care Provider] -
[2021-01-11] MEDS: miSOPROStol 200 MCG Tablet 1000 MCG RC (21:42)
[2021-01-11] MEDS: Carboprost Tromethamine 250 MCG/ML Ampul IM (21:46)
[2021-01-12] VITALS (48 sets, daily range): BP systolic 116–141; BP diastolic 66–94; PULSE 6–205; RESP 16–24; TEMP 36.6–37.4; O2SAT 83–99
[2021-01-12] MEDS: Lactated Ringers 1,000 ML 25 ML IV (00:50)
--- NOTE | 2021-01-12 01:00 | NURSING ---
pt taken over to SCN via wheelchair pushed by support person while this RN pushed IV pole, pt tolerated well, SCN RN to call this RN when pt done in SCN
--- NOTE | 2021-01-12 01:18 | NURSING ---
late entry charting due to pt care
[2021-01-12] MEDS: Magnesium Sulfate 20 GM/500 ML BAG IV ×2 (08:01→18:10)
--- NOTE | 2021-01-12 08:48 | PCM.PN.OB ---
Subjective Subjective Patient doing well without complaints. Tolerating PO. Ambulating and voiding without difficulty. Breast feeding well. Denies chest pain, shortness of breath, calf pain/swelling, fevers, chills, lightheadedness. Objective Data Objective Data Vital Signs: Vital Signs Temp Pulse Resp BP Pulse Ox 99.2 F H 108 H 16 128/66 H 97 01/12/21 07:51 01/12/21 07:52 01/12/21 07:51 01/12/21 07:52 01/12/21 07:52 Oxygen Delivery Method Room Air Weight: 204 lb Body Mass Index (BMI) 36.1 Intake & Output: Intake and Output for Last 24 Hours 01/10/21 01/11/21 01/12/21 23:59 23:59 23:59 Intake Total 300 / 300 5259.79 / 5279.79 1203.00 / 1203.00 Output Total 950 / 950 3915 / 3955 590 / 590 Balance -650 / -650 1344.79 / 1324.79 613.00 / 613.00 Lab / Micro Data Result Diagrams: 01/10/21 18:40 01/10/21 09:23 Micro: Microbiology 01/10/21 20:50 Nasal Secretion SARS-CoV-2 Antigen (Rapid) - Final ROS Constitutional Constitutional: Denies fever(s) Cardiovascular Cardiovascular: Denies chest pain, dyspnea or lightheadedness Gastrointestinal Gastrointestinal: Reports abdominal pain; Denies constipation or diarrhea Neurologic Neurologic: Denies dizziness or headache(s) Physical Exam Const alert, oriented x3, no apparent distress, average body habitus, healthy appearing and well nourished HEENT normocephalic Head and Scalp: atraumatic Eyes PERRL and EOMs intact bilaterally Neck full ROM Lymph Lymphatic: no lymphadenopathy noted Resp normal respiratory effort, no retractions and no use of accessory muscles Cardio regular rate GI soft to palpation, non-tender and non-distended Palpation: other Other Details: fundus firm Extremity normal to inspection and no clubbing, cyanosis or edema Skin no rashes or lesions noted Neuro no focal motor deficits and no sensory deficits noted Psych mental status grossly normal, affect normal and speech normal Assessment & Plan (1) Spontaneous vaginal delivery: PLAN: s/p PPD # 1 1. routine post delivery care 2. breast feeding- support given 3. rh positive 4. rubella immune (2) Pre-eclampsia in third trimester: COMMENT: Diagnosed 34 weeks. Celestone given 01/02-. Procardia 30 mg XL. Precautions reviewed. Plan twice weekly visits with weekly NST and weekly blood pressure in office with labs. Deliver at 37 weeks. PLAN: mag sulfate for seizure ppx x24h On Procardia XL 30mg daily - BPs normotensive Asymptomatic
[2021-01-12] MEDS: Ibuprofen 600 MG Tablet PO ×2 (08:56→15:14)
[2021-01-12] MEDS: Acetaminophen 500 MG Tablet 1000 MG PO (11:02)
[2021-01-12] MEDS: NIFEdipine 30 MG Tablet PO (12:05)
[2021-01-13 02:46] VITALS: BP 121/75; PULSE 89; RESP 16
[2021-01-13 08:15] VITALS: BP 126/78; PULSE 85; RESP 16; TEMP 36.9; O2SAT 97
--- NOTE | 2021-01-13 09:38 | PN.OBGYN_ITS ---
Subjective Subjective Patient doing well without complaints. Tolerating PO. Ambulating and voiding without difficulty. Breast feeding well. Denies chest pain, shortness of breath, calf pain/swelling, fevers, chills, lightheadedness. Objective Data Objective Data Vital Signs: Vital Signs Temp Pulse Resp BP Pulse Ox 98.4 F 85 16 126/78 H 97 01/13/21 08:15 01/13/21 08:15 01/13/21 08:15 01/13/21 08:15 01/13/21 08:15 Oxygen Delivery Method Room Air Weight: 204 lb Body Mass Index (BMI) 36.1 Intake & Output: Intake and Output for Last 24 Hours 01/11/21 01/12/21 01/13/21 23:59 23:59 23:59 Intake Total 5259.79 / 5279.79 3661.75 / 3661.75 Output Total 3915 / 3955 3065 / 3065 Balance 1344.79 / 1324.79 596.75 / 596.75 Lab / Micro Data Result Diagrams: 01/10/21 18:40 01/10/21 09:23 Micro: Microbiology 01/10/21 20:50 Nasal Secretion SARS-CoV-2 Antigen (Rapid) - Final ROS Constitutional Constitutional: Denies fever(s) Cardiovascular Cardiovascular: Denies chest pain, dyspnea or lightheadedness Gastrointestinal Gastrointestinal: Reports abdominal pain; Denies constipation or diarrhea Neurologic Neurologic: Denies dizziness or headache(s) Physical Exam Const alert, oriented x3, no apparent distress, average body habitus, healthy josefina earing and well nourished HEENT normocephalic Head and Scalp: atraumatic Eyes PERRL and EOMs intact bilaterally Neck full ROM Lymph Lymphatic: no lymphadenopathy noted Resp normal respiratory effort, no retractions and no use of accessory muscles Cardio regular rate GI soft to palpation, non-tender and non-distended Palpation: other Other Details: fundus firm Extremity normal to inspection and no clubbing, cyanosis or edema Skin no rashes or lesions noted Neuro no focal motor deficits and no sensory deficits noted Psych mental status grossly normal, affect normal and speech normal Assessment & Plan (1) Spontaneous vaginal delivery: COMMENT: GP IOL PreEwSF 01/11 Kina (NICU) PLAN: s/p PPD # 2 1. routine post delivery care 2. breast feeding- support given 3. rh positive 4. rubella immune (2) Pre-eclampsia in third trimester: COMMENT: Diagnosed 34 weeks. Celestone given 01/02-. Procardia 30 mg XL. Precautions reviewed. Plan twice weekly visits with weekly NST and weekly blood pressure in office with labs. Deliver at 37 weeks. PLAN: s/p mag sulfate BPs controlled on Procardia XL 30mg asymptomatic
[2021-01-13] MEDS: NIFEdipine 30 MG Tablet PO (10:02)
== END 2021-01-13 11:00 | disposition home or self-care (01) | DRG 560 ==
LOC: WPOUT 18:46 → WP 18:46
PROVIDERS: Admitting Provider Obstetrics & Gynecology; Referring Provider Obstetrics & Gynecology; Visit Provider Obstetrics & Gynecology
DX: O14.14 Severe pre-eclampsia complicating childbirth (principal); O69.81X0 Labor and delivery complicated by cord around neck, without compression, not applicable or unspecified; O99.824 Streptococcus B carrier state complicating childbirth; Z37.0 Single live birth; Z3A.35 35 weeks gestation of pregnancy
CPT/HCPCS: 36415; 59025; 59050; 80053; 82570; 84156; 85025; 86850; 86900; 86901; 87426; 99218; J7030; J7120; A4216; G0378; J2405

== ENCOUNTER → 2021-02-19 | Outpatient (CLI) | payer MEDICAID, SELFPAY ==
[2021-02-23 14:01] LABS: HPV Reflexed? NOT INDICATED
== END | disposition home or self-care (01) ==
LOC: LABSPEC 11:15
PROVIDERS: Visit Provider Nurse Practitioner Women's Health
DX: Z12.4 Encounter for screening for malignant neoplasm of cervix (principal)
CPT/HCPCS: 88175; G0145

== ENCOUNTER → 2021-03-19 | Outpatient (CLI) | payer MEDICAID, SELFPAY ==
[2021-03-22 00:06] LABS: Chlamydia By Nucleic Acid AMP Negative (Negative)
[2021-03-22 07:27] LABS: Gonococcus By Nucleic Acid AMP Negative (Negative)
== END | disposition home or self-care (01) ==
LOC: LABSPEC 16:32
PROVIDERS: Referring Provider Obstetrics & Gynecology; Visit Provider Obstetrics & Gynecology
DX: N76.0 Acute vaginitis (principal)
CPT/HCPCS: 87070; 87205; 87491; 87591

== ENCOUNTER → 2021-11-28 | Outpatient (CLI) | payer MEDICAID, SELFPAY | END | disposition home or self-care (01) | LOC: LABSPEC 14:12 | PROVIDERS: Referring Provider Obstetrics & Gynecology; Visit Provider Obstetrics & Gynecology | DX: N76.0 Acute vaginitis (principal) | CPT/HCPCS: 87070; 87205 ==

== ENCOUNTER 2022-04-10 06:08 | Emergency (ER) | payer MEDICAID, SELFPAY ==
[2022-04-10 06:10] VITALS: BP 121/88; PULSE 84; RESP 16; TEMP 36.7; O2SAT 98; BMI 35.4
--- NOTE | 2022-04-10 06:23 | ED.VIS.DENTA ---
HPI History of Present Illness Chief Complaint: Dental Informant: patient Onset/Context/Timing Onset: Yesterday Context: Gradual Onset Timing: Waxes and wanes Quality: Burning, stabbing Location: Left upper molars Worsened by: Eating Relieved by: NSAIDs Associated Symptoms Assocated Symptom - Dental: cold sensitivity; Negative for fever, jaw swelling, face swelling or hot sensitivity Narrative Narrative: Patient presents with left upper dental pain that began yesterday. Patient states she took some ibuprofen and it helped. Patient states the pain has been waxing and waning since yesterday. Patient states the pain is burning and stabbing. Patient states it is over the left upper molar area. Patient states it is worse with eating and with drinking cold liquids. Patient denies any fevers or chills. Patient denies any jaw or facial swelling. Patient denies any hot sensitivity. PFSH [facility] Medical History Spontaneous vaginal delivery Home Medications levonorgestrel 20.4 mcg/24 hrs (8 yrs) 52 mg intrauterine device (Liletta) 1 device intrauterine ONCE 11/28/21 [History Last Taken Unknown] penicillin V potassium 500 mg tablet 500 mg PO 4X/DAY #40 tabs 04/10/22 [Rx Last Taken Unknown] Allergy/AdvReac Type Severity Reaction Status Date / Time sulfamethoxazole Allergy Intermediate Rash Verified 03/19/21 10:30 [From Bactrim] trimethoprim [From Bactrim] Allergy Intermediate Rash Verified 03/19/21 10:30 Family History Mother Diabetes Surgical History History of tonsillectomy Social History adopted: No household members: family housing: condominium number of children: 2 current occupational status: employed current occupation: [employer] pets and animals: Yes history of recent travel: No sexually active: Yes Smoking Status: Never smoker second hand exposure: Yes alcohol intake: never substance use type: does not use seatbelt use: always do you feel safe at home: Yes additional social history: [employer] [place] [employer] (son Antonio age 4) ROS ROS ED Constitutional Constitutional ED: Denies chills or fever(s) Eyes Eyes: Denies blurry vision or change in vision ENT ENT ED: Denies rhinorrhea or sore throat Cardiovascular Cardiovascular: Denies chest pain or palpitations Respiratory/Chest Respiratory/Chest: Denies cough or dyspnea Gastrointestinal Gastrointestinal: Denies nausea or vomiting Genitourinary Genitourinary ED: Denies dysuria or hematuria Musculoskeletal Musculoskeletal: Denies back pain or neck pain Integumentary Denies abscess or rash Neurologic Neurologic: Denies headache(s) or weakness Allergic/Immunologic Allergic/Immunologic ED: Denies mouth swelling or urticaria EXAM Physical Exam Const Vital Signs: 04/10/22 06:10 Temperature 98.1 F Temperature Source Oral Pulse Rate 84 Respiratory Rate 16 Blood Pressure 121/88 H Blood Pressure Mean 99 Pulse Ox 98 Oxygen Delivery Method Room Air Positive well nourished and well developed General Appearance ED: well developed and NAD HEENT HEENT Narrative: There is dental carry over the left upper second molar. There is some gingival edema around this tooth. There is no fluctuance. There is no discharge or drainage. Oral mucosa is pink and moist. Oropharynx is clear. Airway is patent. There are no other dental caries noted. Mouth ED: Yes oral and palatal mucosa normal, Yes lips normal and Yes tongue normal Mouth: oral and palatal mucosa normal, lips normal and tongue normal Teeth and Gingiva: abnormal tooth and associated gingiva Positive for tenderness and associated gingival edema; Negative for associated gingival fluctuance and caries Throat: posterior oropharynx normal Neck no lymphadenopathy, supple and no JVD General: normal visual inspection; Negative for anterior neck swelling, tenderness or submandibular swelling Lymph Lymphatic: no lymphadenopathy noted Neuro oriented x3, CN's II-XII intact bilaterally, moves all extremities, no focal motor deficits and no sensory deficits noted Sensorium / Orientation: alert Motor Exam: strength 5/5 throughout MDM MDM MDM Narrative Medical decision making narrative: Patient was given a dose of Pen-Vee K here. Patient was given a prescription for Pen-Vee K. Patient was given a dental referral list. Patient was instructed to follow-up with a dentist in 5 to 7 days. Patient understood and was agreeable with the plan. All questions were answered. Discharge Plan Triage Chief Complaint: Dental ED Provider: Noah Brizuela Dx/Rx/DC Orders Clinical Impression: Infected dental caries Instructions: ED Dental Pain, ED Dental Cavity Prescriptions: New penicillin V potassium 500 mg tablet 500 mg PO 4X/DAY Qty: 40 0RF No Action Liletta 20.1 mcg/24 hrs (6 yrs) 52 mg intrauterine device 1 device intrauterine ONCE Rx Instructions: as a single dose Primary Care Provider: Care Physician,No Primary Referrals: Care Physician,No Primary [Primary Care Provider] - Dentist,Your [STAFF PHYSICIAN] - 5-7 Days Disposition Disposition: Home, Self Care
[2022-04-10] MEDS: Naproxen 250 MG Tablet 500 MG PO (06:54)
[2022-04-10] MEDS: Penicillin Vk 250 MG Tablet 500 MG PO (06:55)
== END 2022-04-10 06:58 | disposition home or self-care (01) ==
PROVIDERS: Emergency Provider Emergency Medicine; Visit Provider Emergency Medicine
DX: K02.9 Dental caries, unspecified (principal)
CPT/HCPCS: 99283

== ENCOUNTER → 2022-11-27 | Outpatient (CLI) | payer MEDICAID, SELFPAY ==
[2022-11-30 14:12] LABS: Chlamydia By Nucleic Acid AMP Negative (Negative); Gonococcus By Nucleic Acid AMP Negative (Negative)
== END | disposition home or self-care (01) ==
LOC: LABSPEC 15:10
PROVIDERS: Referring Provider Nurse Practitioner Women's Health; Visit Provider Nurse Practitioner Women's Health
DX: N89.8 Other specified noninflammatory disorders of vagina (principal)
CPT/HCPCS: 87070; 87205; 87491; 87591

== ENCOUNTER → 2024-04-14 | Outpatient (CLI) | payer BC, SELFPAY ==
[2024-04-20 13:49] LABS: HPV Reflexed? NOT INDICATED
== END | disposition home or self-care (01) ==
LOC: LABSPEC 14:37
PROVIDERS: Referring Provider Nurse Practitioner Women's Health; Visit Provider Nurse Practitioner Women's Health
DX: Z12.4 Encounter for screening for malignant neoplasm of cervix (principal)
CPT/HCPCS: 88175; G0145

== ENCOUNTER → 2024-09-15 | Outpatient (CLI) | payer MEDICAID, SELFPAY ==
[2024-09-15 13:35] LABS: HIV Nonreactive (Nonreactive); Syphilis Antibodies Nonreactive (Nonreactive)
--- OUTSIDE RECORDS SUMMARY | 2024-09-15 20:06 | XMS RPT_ITS | CCD ---
Author Organization [facility] Care Team Providers Care Geological Survey Field Assistant Name Role Phone Care Physician, No Primary Primary Care Provider Unavailable Care Physician, No Primary Referring Provider Un available Dr. Marie Mcneill Attending Provider Dillon ASSISTANT PRODUCTION EDITOR, Maegan Attending Unavailable Dillon ASSISTANT PRODUCTION EDITOR, Maegan Referring Unavailable Care Physician, No Primary Primary Care Unava ilable Dillon ASSISTANT PRODUCTION EDITOR, Maegan Attending Unavailable Care Physician, No Primary Primary Care Unava ilable Care Physician, No Primary Referring Unava ilable DARYBRIANA HENAO Admitting Unavailable DARYBRIANA Attending Unavailable DARYBRIANA HENAO Primary Care Unavailable IVON CLAUDIO CNP Admitting Unavailable IVON CLAUDIO CNP Attending Unavailable IVON CLAUDIO CNP Primary Care Unavailable IVON CLAUDIO ENVIRONMENTAL COMPLIANCE OFFICER Admitting Unavailable IVON CLAUDIO CNP Attending Unavailable IVON CLAUDIO CNP Primary Care Unavailable Care Physician, No Primary Primary Care Provider Unavailable Care Physician, No Primary Referring Provider Un available Dillon PABON-CMaegan Attending Provider Dillon ASSISTANT PRODUCTION EDITOR-CMaegan Referring Provider [phone] Allergies Allergy Classification Reported Allergen(s) Allergy Type Date of Onset Reaction(s) Facility (3 sources) Sulfamethoxazole Drug Allergy 1 [facility] (3 sources) Trimethoprim Drug Allergy 1 [facility] (1 source) Sulfamethoxazole Drug Allergy 5 [facility] (1 source) Trimethoprim Drug Allergy 5 [facility] (1 source) Sulfamethoxazole / Trimethoprim Drug Allergy [facility] Medications Current Medications Medication Drug Class(es) Dates Sig (Normalized) Sig (Original) FLUoxetine 40 mg oral capsule (1 source) Serotonin Reuptake Inhibitor Start: 04-14-2024 take 1 capsule by mouth once daily Fluoxetine (Prozac) 40 mg capsule Active 40 mg PO daily April 14, 2024 1:00am Completed/Discontinued Medications Medication Drug Class(es) Dates Sig (Normalized) Sig (Original) Blood Pressure Monitor (2 sources) Start: 12-29-2020 End: 03-19-2021 Blood Pressure Monitor Discontinued 0 .ROUTE .MEDSUPPLY December 28, 2020 11:00pm March 19, 2021 10:30am As directed Start: 12-29-2020 End: 03-19-2021 Blood Pressure Monitor Disco ntinued 0 .ROUTE .MEDSUPPLY December 29, 2020 12:00am March 19, 2021 11:30am As directed Blood Pressure Monitor kit (1 source) Start: 12-29-2020 End: 03-19-2021 Blood Pressure Monitor kit Discontinued 0 .ROUTE .MEDSUPPLY December 29, 2020 12:00am March 19, 2021 11:30am As directed fluconazole 150 mg oral tablet (4 sources) Azole Antifungal Start: 12-01-2022 End: 04-14-2024 Fluconazole 150 mg tablet Discontinued 150 mg PO .COMPLEX 2 December 01, 2022 12:00am April 14, 2024 12:00pm 150 mg PO take one po now and repeat in 3 days Start: 03-19-2021 End: 11-28-2021 Fluconazole (Diflucan) 150 m g tablet Discontinued 150 mg PO .COMPLEX 2 March 19, 2021 1:00am November 28, 2021 12:03pm 150 mg PO now and in 72 hours ibuprofen 800 mg oral tablet (3 sources) Nonsteroidal Anti-inflammatory Drug Start: 01-11-2021 End: 11-28-2021 take 1 tablet by mouth every eight hours as needed for pain Ibuprofen 800 mg tablet Discontinued 800 mg PO Q8H as needed for pain 60 January 11, 2021 12:00am November 28, 2021 12:03pm imiquimod 50 mg/ml topical cream (1 source) Start: 11-27-2022 End: 04-14-2024 Imiquimod 5 % cream in packet Discontinued 1 NMA TOPICAL .COMPLEX 12 November 27, 2022 12:00am April 14, 2024 12:00pm 1 applic topical 3 times per week up to 16 weeks; levonorgestrel 0.410827 mg/hr intrauterine system (3 sources) Progestin, Progestin-containing Intrauterine Device Start: 11-28-2021 End: 04-14-2024 Levonorgestrel (Liletta) 20.1 mcg/24 hrs (6 yrs) 52 mg intrauterine device Discontinued 1 NMA INTRA-UTER ONCE November 28, 2021 12:00am April 14, 2024 12:01pm as a single dose Start: 11-28-2021 Levonorgestrel (Liletta) 20.1 mcg/24 hrs (6 yrs) 52 mg intrauterine device Active 1 DEVICE INTRA-UTER ONCE November 27, 2021 11:00pm as a single dose metroNIDAZOLE 500 mg oral tablet (8 sources) Nitroimidazole Antimicrobial Start: 12-18-2021 End: 12-25-2021 take 1 tablet by mouth twice daily Metronidazole 500 mg tablet Discontinued 500 mg PO TWICE A DAY 14 December 18, 2021 12:00am December 24, 2021 12:00am December 25, 2021 12:03am Start: 11-28-2021 End: 12-05-2021 take 1 tablet by mouth twice daily Metronidazole 500 mg tablet Discontinued 500 mg PO TWICE A DAY 14 November 28, 2021 12:00am December 04, 2021 12:00am December 05, 2021 12:04am Start: 03-16-2021 End: 03-23-2021 take 1 tablet by mouth twice daily Metronidazole 500 mg tablet Discontinued 500 mg PO TWICE A DAY 14 March 16, 2021 1:00am March 22, 2021 1:00am March 23, 2021 1:02am NIFEdipine 30 mg osmotic 24 hr extended release oral tablet (3 sources) Dihydropyridine Calcium Channel Caitlyn Start: 01-02-2021 End: 02-19-2021 take 1 tablet by mouth once daily Nifedipine (Procardia Xl) 30 mg tablet extended release 24hr Discontinued 30 mg PO DAILY January 02, 2021 12:00am February 19, 2021 11:38am penicillin v potassium 500 mg oral tablet (2 sources) Start: 04-10-2022 End: 11-27-2022 take 1 tablet by mouth four times daily Penicillin V Potassium 500 mg tablet Discontinued 500 mg PO 4 TIMES DAILY April 10, 2022 1:00am November 27, 2022 1:04pm [id number]-Yjsz-Akwgw Acid (2 sources) Start: 05-13-2015 End: 11-28-2021 Rs684-Goke-Rqrvm Acid Discontinued 1 EACH PO TWICE A DAY May 13, 2015 12:00am November 28, 2021 11:03am Start: 05-13-2015 End: 11-28-2021 Cl110-Frxl-Bnxew Ac id Discontinued 1 EACH PO TWICE A DAY May 13, 2015 1:00am November 28, 2021 12:03pm Ka020-Otqp-Xtqji Acid 1 EACH tablet (1 source) Start: 05-13-2015 End: 11-28-2021 take 1 tablet by mouth twice daily Wh572-Jxkj-Fmogs Acid 1 EACH tablet Discontinued 1 NMA PO TWICE A DAY May 13, 2015 1:00am November 28, 2021 12:03pm Problems Problem Classification Problem Date Documented Date Episodic/Chronic Anxiety disorders (1 source) Anxiety disorder, unspecified; Translations: [Anxiety disorder, unspecified] Onset: 08-23-2024 Chronic Contraceptive and procreative management (3 sources) Encounter for removal of intrauterine contraceptive device; Translations: [Patient encounter status] Onset: 04-14-2024 09-15-2024 Episodic Comment on above: plan mirena IUD Disorders of teeth and jaw (2 sources) Dental caries; Translations: [Dental caries, unspecified] 04-18-2022 Episodic Immunizations and screening for infectious disease (4 sources) Requires diphtheria, tetanus and pertussis vaccination; Translations: [Encounter for immunization] 01-03-2021 Episodic Comment on above: Given Inflammatory diseases of female pelvic organs (3 sources) Vaginitis; Translations: [Acute vaginitis] Episodic Menstrual disorders (2 sources) Dysmenorrhea; Translations: [Dysmenorrhea, unspecified] 09-15-2024 Chronic Other and delivery including normal (3 sources) Vaginal delivery; Translations: [Encounter for full-term uncomplicated delivery] 02-19-2021 Episodic Comment on above: GP IOL PreEwSF 1 0/7 Boy-[facility] (NICU) Other screening for suspected conditions (not mental disorders or infectious disease) (1 source) Encounter for screening for malignant neoplasm of cervix; Translations: [Encounter for screening for malignant neoplasm of cervix] Onset: 05-05-2024 Episodic Other skin disorders (1 source) Nonscarring hair loss, unspecified; Translations: [Nonscarring hair loss, unspecified] Onset: 08-23-2024 Episodic Other skin disorders (1 source) Xerosis cutis; Translations: [Xerosis cutis] Onset: 08-23-2024 Episodic Polyhydramnios and other problems of amniotic cavity (3 sources) Subchorionic hematoma; Translations: [Other specified disorders of amniotic fluid and membranes, unspecified trimester, not applicable or unspecified] 09-15-2020 Episodic Comment on above: 2 small hematomas Residual codes; unclassified (3 sources) History of pre-eclampsia; Translations: [Personal history of other complications of , childbirth and the puerperium] 11-27-2022 Episodic Comment on above: Delivered at 35 wk Viral infection (1 source) Genital warts; Translations: [Anogenital (venereal) warts] 11-27-2022 Episodic Comment on above: aldara Rx Results Test Name Value Interpretation Reference Range Facility CBC + DIFFon 08-20-2024 Baso # 0.02 x10EE3/UL Normal 0.00 - 0.10 [facility] Comment on above: Performed By: #### 2 [id number] #### [place] [id number] Basophils/100 WBC (Bld) 0.3 % Normal 0.0 - 2.0 [facility] Comment on above: Performed By: #### 2 79634 #### [facility],[address] [place] [address] CBC + DIFF Normal [facility] Comment on above: Result Comment: CBC- COMPLETE BLOOD COUNT Performed By: #### 2 01885 #### [facility],[address] [place] [address] EO # 0.11 x10EE3/UL Normal 0.00 - 0.50 [facility] Comment on above: Performed By: #### 2 29236 #### [facility],[address] [place] [address] 40329 Eosinophils/100 WBC (Bld) 1.7 % Normal 0.0 - 7.0 [facility] Comment on above: Performed By: #### 2 31063 #### [facility],[address] [place] [address] Erythrocyte distribution width (RBC) [Ratio] 11.9 % Low 12.0 - 15.6 [facility] Comment on above: Performed By: #### 2 61929 #### [facility],[address] [place] [address] Hematocrit (Bld) [Volume fraction] 39.7 % Normal 34.0 - 46.0 [facility] Comment on above: Performed By: #### 2 71829 #### [facility],[address] [place] [address] Hemoglobin (Bld) [Mass/Vol] 14.1 g/dL Normal 12.0 - 16.0 [facility] Comment on above: Performed By: #### 2 10860 #### [facility],[address] [place] [address] Lymph # 1.92 x10EE3/UL Normal 0.80 - 2.80 [facility] Comment on above: Performed By: #### 2 39923 #### [facility],[address] [place] [address] Lymphocytes/100 WBC (Bld) 30.1 % Normal 20.0 - 45.0 [facility] Comment on above: Performed By: #### 2 83947 #### [facility],[address] [place] [address] MANUAL DIFF N/A Normal [facility] Comment on above: Performed By: #### 2 33316 #### [facility],[address] [place] [address] MCH (RBC) [Entitic mass] 34 pg High 27 - 33 [facility] Comment on above: Performed By: #### 2 28152 #### [facility],[address] [place] [address] MCHC 36 X10 3 Normal 32 - 36 [facility] Comment on above: Performed By: #### 2 25910 #### [facility],[address] [place] [address] MCV (RBC) [Entitic vol] 94 fL Normal 80 - 99 [facility] Comment on above: Performed By: #### 2 20708 #### [facility],[address] [place] [address] [place] # 0.36 x10EE3/UL Normal 0.20 - 1.00 [facility] Comment on above: Performed By: #### 2 62123 #### [facility],[address] [place] [address] MONOS % 5.6 % Normal 0.0 - 10.0 [facility] Comment on above: Performed By: #### 2 28655 #### [facility],[address] [place] [address] Morphology Rhett (Bld) [Interp] N/A Normal [facility] Comment on above: Performed By: #### 2 27462 #### [facility],[address] [place] [address] Neut # 3.97 x10EE3/UL Normal 1.50 - 7.10 [facility] Comment on above: Performed By: #### 2 22721 #### [facility],[address] [place] [address] Neutrophils/100 WBC (Bld) 62.2 % Normal 46.0 - 76.0 [facility] Comment on above: Performed By: #### 2 05549 #### [facility],[address] [place] [address] PLATELET 500 x10EE3/UL High 150 - 450 [facility] Comment on above: Result Comment: REPE ATED Performed By: #### 2 47955 #### [facility],[address] [place] [address] 80520 Platelet mean volume (Bld) [Entitic vol] 8.5 fL Normal 6.6 - 10.5 [facility] Comment on above: Result Comment: AUTO MATED DIFFERENTIAL Performed By: #### 2 61412 #### [facility],[address] [place] [address] 69384 RBC 4.21 x 10EE6/UL Normal 4.10 - 5.30 [facility] Comment on above: Performed By: #### 2 36862 #### [facility],[address] [place] [address] 89641 WBC 6.4 x 10EE3/UL Normal 4.5 - 10.8 [facility] Comment on above: Performed By: #### 2 81180 #### [facility],[address] [place], [place] [id number] CMP with eGFRon 08-20-2024 AGE 24 years Normal [facility] Comment on above: Performed By: #### 2 21365 #### [facility],[address] [place] [address] 32329 Albumin [Mass/Vol] 3.8 g/dL Normal 3.4 - 5.0 [facility] Comment on above: Performed By: #### 2 79040 #### [facility],[address] [place] [address] 58616 Albumin/Globulin [Mass ratio] 0.9 {ratio} Normal 0.9 - 1.6 [facility] Comment on above: Performed By: #### 2 07128 #### [facility],[address] [place] [address] 36301 ALK PHOS 99 U/L Normal 46 - 116 [facility] Comment on above: Performed By: #### 2 23116 #### [facility],[address] [place] [address] 32894 ALT [Catalytic activity/Vol] 30 U/L Normal 16 - 63 [facility] Comment on above: Performed By: #### 2 29279 #### [facility],[address] [place] [address] 58427 Anion gap [Moles/Vol] 16 mmol/L Normal 10 - 20 [facility] Comment on above: Performed By: #### 2 52130 #### [facility],[address] [place] [address] 16537 AST [Catalytic activity/Vol] 17 U/L Normal 13 - 39 [facility] Comment on above: Performed By: #### 2 44292 #### [facility],[address] [place] [address] 78548 B/C RATIO 10 ratio Normal 0 - 30 [facility] Comment on above: Performed By: #### 2 38750 #### [facility],[address] [place] [address] 33064 Bilirubin [Mass/Vol] 0.4 mg/dL Normal 0.2 - 1.0 [facility] Comment on above: Performed By: #### 2 14601 #### [facility],[address] [place] [address] 96954 Calcium [Mass/Vol] 9.5 mg/dL Normal 8.5 - 10.1 [facility] Comment on above: Performed By: #### 2 98885 #### [facility],[address] [place] [address] 21860 Chloride [Moles/Vol] 103 mmol/L Normal 98 - 107 [facility] Comment on above: Performed By: #### 2 78320 #### [facility],[address] [place] [address] 32387 CMP with eGFR Normal [facility] Comment on above: Result Comment: COMP REHENSIVE METABOLIC PANEL Performed By: #### 2 42582 #### [facility],[address] [place] [address] 95041 CO2 [Moles/Vol] 22.5 mmol/L Normal 21.0 - 32.0 [facility] Comment on above: Performed By: #### 2 08299 #### [facility],[address] [place] [address] 78541 Creatinine [Mass/Vol] 0.79 mg/dL Normal 0.55 - 1.02 [facility] Comment on above: Performed By: #### 2 15573 #### [facility],[address] [place] [address] 03633 GFR/1.73 sq M.predicted among non-blacks MDRD (S/P/Bld) [Vol rate/Area] mL/min/{1.73_m2} Normal 60 - 999 [facility] Comment on above: Performed By: #### 2 26064 #### [facility],[address] [place] [address] 97017 Result Comment: ACCO RDING TO THE NATIONAL KIDNEY DISEASE EDUCATION PROGRAM(NKDE), A NORMAL eGFR IS A VALUE GREATER THAN OR EQUAL TO 60 ML/MIN/1.73 SQ METERS. CHRONIC KIDNEY DISEASE: <60mL/MIN/1.73 SQ METERS KIDNEY FAILURE: <15mL/MIN/1.73 SQ METERS THIS TEST SHOULD ONLY BE USED FOR PATIENTS 18 YEARS OF AGE AND OLDER. Globulin (S) [Mass/Vol] 4.1 g/dL High 1.5 - 3.8 [facility] Comment on above: Performed By: #### 2 65090 #### [facility],[address] [place] [address] 73286 Glucose [Mass/Vol] 91 mg/dL Normal 74 - 106 [facility] Comment on above: Performed By: #### 2 61216 #### [facility],[address] [place] [address] 15728 Potassium [Moles/Vol] 4.1 mmol/L Normal 3.5 - 5.1 [facility] Comment on above: Performed By: #### 2 35339 #### [facility],[address] [place] [address] 84753 Protein [Mass/Vol] 7.9 g/dL Normal 6.4 - 8.2 [facility] Comment on above: Performed By: #### 2 43922 #### [facility],[address] [place] [address] 89468 Sodium [Moles/Vol] 137 mmol/L Normal 136 - 145 [facility] Comment on above: Performed By: #### 2 64717 #### [facility],[address] [place] [address] 96953 Urea nitrogen [Mass/Vol] 8 mg/dL Normal 7 - 18 [facility] Comment on above: Performed By: #### 2 89489 #### [facility],[address] [place] [address] 84372 LIPID PROFILEon 08-20-2024 Cholesterol [Mass/Vol] 206 mg/dL Normal 0 - 240 [facility] Comment on above: Performed By: #### 2 69914 ####[facility],[address] [place] [address] 92691 Cholesterol in HDL [Mass/Vol] 47 mg/dL Normal 40 - 60 [facility] Comment on above: Performed By: #### 2 45839 ####[facility],[address] [place] [address] 56659 Cholesterol in LDL [Mass/Vol] 98 mg/dL Normal 0 - 129 [facility] Comment on above: Performed By: #### 2 19488 ####[facility],[address] [place] [address] 55141 Cholesterol.total/C holesterol in HDL [Mass ratio] 4.4 {ratio} Normal 0.0 - 5.0 [facility] Comment on above: Performed By: #### 2 62988 ####[facility],[address] [place] [address] 94171 Lipid 1996 panel Normal [facility] Comment on above: Result Comment: LIPI D PROFILE Performed By: #### 2 76393 ####[facility],[address] [place] [address] 57174 Triglyceride [Mass/Vol] 307 mg/dL High 0 - 150 [facility] Comment on above: Performed By: #### 2 42153 ####[facility],[address] [facility] [address] PAP I-G w/rfx hrHPV-Aptimaon 04-20-2024 ADEQ Comment Normal . [facility] Comment on above: Order Comment: Speci men Comment: [id number] Specimen Comment: Source.............Cervix Specimen Comment: No. of containers..01 ThinPrep Vial Result Comment: Sati sfactory for evaluation. Endocervical and/or squamous metaplastic cells (endocervical component) are present. Performed By: #### L 7400.0353 #### [facility] [address] [place], [place], [id number] COMM . Normal . [facility] Comment on above: Order Comment: Speci men Comment: [id number] Specimen Comment: Source.............Cervix Specimen Comment: No. of containers..01 ThinPrep Vial Performed By: #### L 7400.0353 #### [facility] [address] [place], [place], [id number] COMMENT Comment Normal . [facility] Comment on above: Order Comment: Speci men Comment: [id number] Specimen Comment: Source.............Cervix Specimen Comment: No. of containers..01 ThinPrep Vial Result Comment: This liquid based ThinPrep(R) pap test was screened with the use of an image guided system. Performed By: #### L 7400.0353 #### [facility] [address] [place], [place], [id number] DIAG Comment Normal . [facility] Comment on above: Order Comment: Speci men Comment: [id number] Specimen Comment: Source.............Cervix Specimen Comment: No. of containers..01 ThinPrep Vial Result Comment: NEGA TIVE FOR INTRAEPITHELIAL LESION OR MALIGNANCY. Performed By: #### L 7400.0353 #### [facility] [address] [place], [place], [id number] HPV RFLX Comment Normal . [facility] Comment on above: Order Comment: Speci men Comment: [id number] Specimen Comment: Source.............Cervix Specimen Comment: No. of containers..01 ThinPrep Vial Result Comment: The HPV DNA reflex criteria were not met with this specimen result therefore, no HPV testing was performed. Performed at: [address] [id number] Filemaker Developer: Marcie Espino MD, Phone: [phone] Performed By: #### L 7400.0353 #### [facility] [address] [place], [place], [id number] PAPSMR Comment Normal . [facility] Comment on above: Order Comment: Speci men Comment: [id number] Specimen Comment: Source.............Cervix Specimen Comment: No. of containers..01 ThinPrep Vial Result Comment: The Pap smear is a screening test designed to aid in the detection of premalignant and malignant conditions of the uterine cervix. It is not a diagnostic procedure and should not be used as the sole means of detecting cervical cancer. Both false-positive and false-negative reports do occur. Performed By: #### L 7400.0353 #### [facility] [address] [place], [place], [id number] PERFORM Comment Normal . [facility] Comment on above: Order Comment: Speci men Comment: [id number] Specimen Comment: Source.............Cervix Specimen Comment: No. of containers..01 ThinPrep Vial Result Comment: Frieda Ng Software Quality Assurance Specialist (ASCP) Performed By: #### L 7400.0353 #### [facility] [address] [place], [address] CBC + DIFFon 04-19-2024 Baso # 0.01 x10EE3/UL Normal 0.00 - 0.10 [facility] Comment on above: Performed By: #### 2 18324 #### [facility],[address] [place] [address] 07499 Basophils/100 WBC (Bld) 0.1 % Normal 0.0 - 2.0 [facility] Comment on above: Performed By: #### 2 71596 #### [facility],[address] [place] [address] 77356 CBC + DIFF Normal [facility] Comment on above: Result Comment: CBC- COMPLETE BLOOD COUNT Performed By: #### 2 50930 #### [facility],[address] [place] [address] 20504 EO # 0.05 x10EE3/UL Normal 0.00 - 0.50 [facility] Comment on above: Performed By: #### 2 91416 #### [facility],[address] [place] [address] 80475 Eosinophils/100 WBC (Bld) 0.4 % Normal 0.0 - 7.0 [facility] Comment on above: Performed By: #### 2 41093 #### [facility],[address] [place] [address] 99911 Erythrocyte distribution width (RBC) [Ratio] 12.1 % Normal 12.0 - 15.6 [facility] Comment on above: Performed By: #### 2 29765 #### [facility],[address] [place] [address] 39474 Hematocrit (Bld) [Volume fraction] 44.1 % Normal 34.0 - 46.0 [facility] Comment on above: Performed By: #### 2 10429 #### [facility],[address] [place] [address] 48628 Hemoglobin (Bld) [Mass/Vol] 15.5 g/dL Normal 12.0 - 16.0 [facility] Comment on above: Performed By: #### 2 11820 #### [facility],[address] [place] [address] 93281 Lymph # 0.57 x10EE3/UL Low 0.80 - 2.80 [facility] Comment on above: Performed By: #### 2 71695 #### [facility],[address] [place] [address] 54671 Lymphocytes/100 WBC (Bld) 3.9 % Low 20.0 - 45.0 [facility] Comment on above: Performed By: #### 2 14573 #### [facility],[address] [place] [address] 94621 MANUAL DIFF N/A Normal [facility] Comment on above: Performed By: #### 2 85725 #### [facility],[address] [place], [place] [id number] MCH (RBC) [Entitic mass] 33 pg Normal 27 - 33 [facility] Comment on above: Performed By: #### 2 45946 #### [facility],[address] [place] [address] 29209 MCHC 35 X10 3 Normal 32 - 36 [facility] Comment on above: Performed By: #### 2 [id number] #### [facility],[address] [place] [address] 15041 MCV (RBC) [Entitic vol] 95 fL Normal 80 - 99 [facility] Comment on above: Performed By: #### 2 [id number] #### [facility],[address] [place] [address] 58414 [place] # 0.91 x10EE3/UL Normal 0.20 - 1.00 [facility] Comment on above: Performed By: #### 2 [id number] #### [facility],[address] [place] [address] 09790 MONOS % 6.3 % Normal 0.0 - 10.0 [facility] Comment on above: Performed By: #### 2 [id number] #### [facility],[address] [place] [address] 89030 Morphology Rhett (Bld) [Interp] N/A Normal [facility] Comment on above: Performed By: #### 2 [id number] #### [facility],[address] [place] [address] Neut # 12.97 x10EE3/UL High 1.50 - 7.10 [facility] Comment on above: Performed By: #### 2 09834 #### [facility],[address] [place], [place] [id number] Neutrophils/100 WBC (Bld) 89.3 % High 46.0 - 76.0 [facility] Comment on above: Performed By: #### 2 08518 #### [facility],[address] [place] [address] PLATELET 375 x10EE3/UL Normal 150 - 450 [facility] Comment on above: Performed By: #### 2 [id number] #### [place] [address] Platelet mean volume (Bld) [Entitic vol] 7.1 fL Normal 6.6 - 10.5 [facility] Comment on above: Result Comment: AUTO MATED DIFFERENTIAL Performed By: #### 2 [id number] #### [facility],[address] [place], [place] [id number] RBC 4.65 x 10EE6/UL Normal 4.10 - 5.30 [facility] Comment on above: Performed By: #### 2 [id number] #### [facility],[address] [place], [place] [phone] WBC 14.5 x 10EE3/UL High 4.5 - 10.8 [facility] Comment on above: Performed By: #### 2 99419 #### [facility],[address] [place], [place] [id number] CHEST 2 VIEWSon 04-19-2024 CHEST 2 VIEWS [place] [address] Patient: KIKO HAN Phone#: : 2000 Age: 24 Gender: F Pt. Type: ER Account: [id number] Location: [facility] Ordering: BRIANA FOOTE Exam Date: 04/19/2024/10:39 Family Phys: Charge Code: [id number] Physician: [place] Order #: [id number] Dose#: PROCEDURE: X-RAY CHEST 2 VIEWS COMPARISON: [facility], XR, CHEST 2 VIEWS, 01/31/2018, 20:44. INDICATIONS: Cough. FINDINGS: LUNGS: On lateral view there is hazy increased retrocardiac density suspicious for infiltrate.. No significant pulmonary parenchymal abnormalities. VASCULATURE: Normal. Unremarkable pulmonary vasculature. CARDIAC: Normal. No cardiac silhouette abnormality or cardiomegaly. MEDIASTINUM: Normal. No visible mass or adenopathy. PLEURA: Normal. No effusion or pleural thickening. BONES: Normal. No fracture or visible bony lesion. OTHER: Negative. CONCLUSION: 1. Hazy increased retrocardiac density seen on lateral projection suspicious for infiltrate. Dictated by: Regina Gonzales MD on 04/19/2024 at 10:38 Approved by: Regina Gonzales MD on 04/19/2024 at 10:42 Normal [facility] CORONAVIRUS (SARS) ANTIGEN T ESTon 04-19-2024 EXTERNAL QC DONE? YES Normal [facility] Comment on above: Performed By: #### 2 [id number] #### [facility],[address] [place] [address] INTERNAL CONTROL PASS Normal [facility] Comment on above: Performed By: #### 2 73889 #### [facility],[address] [place] [address] SARS ANTIGEN Negative Normal NORMAL: NEGATIVE [facility] Comment on above: Performed By: #### 2 [id number] #### [facility],[address] [place] [address]60 SEND TO ? NO Normal [facility] Comment on above: Result Comment: SARS -CoV-2 THIS TEST IS BEING USED UNDER THE FDA EUA PROCEDURE. THIS ASSAY HAS BEEN VALIDATED AT [facility] FOR USE WITH NASAL AND NASOPHARYNGEAL SWAB SPECIMENS. INTERPRETIVE DATA TEST RESULTS SHOULD ALWAYS BE CONSIDERED IN THE CONTEXT OF CLINICAL OBSERVATIONS AND EPIDEMIOLOGICAL DATA IN MAKING FINAL DIAGNOSIS AND PATIENT MANAGEMENT DECISIONS. PATIENT MANAGEMENT SHOULD FOLLOW CURRENT CDC GUIDELINES. THE CHELY SARS ANTIGEN VANESSA DOES NOT DIFFERENTIATE BETWEEN SARS-CoV & SARS-CoV-2. A POSITIVE TEST RESULT INDICATES THE PRESENCE OF SARS-CoV-2 NUCLEOCAPSID PROTEIN ANTIGEN, AND THE PATIENT IS INFECTED WITH THE VIRUS AND PRESUMED TO BE CONTAGIOUS. A NEGATIVE TEST RESULT FOR THIS TEST MEANS THAT SARS-CoV-2 NUCLEOCAPSID PROTEIN ANTIGEN WAS NOT PRESENT IN THE SPECIMEN ABOVE THE LIMIT OF DETECTION. HOWEVER, A NEGATIVE RESULT DOES NOT RULE OUT COVID-19 AND SHOULD NOT BE USED THE SOLE BASIS FOR TREATMENT OR PATIENT MANAGEMENT DECISIONS. A NEGATIVE RESULT DOES NOT EXCLUDE THE POSSIBILITY OF COVID-19. NEGATIVE RESULTS, FROM PATIENTS WITH SYMPTOM ONSET BEYOND FIVE DAYS, SHOULD BE TREATED PRESUMPTIVE AND CONFIRMATION WITH A MOLECULAR ASSAY, IF NECESSARY, FOR PATIENT MANAGEMENT, MAY BE PERFORMED. WHEN DIAGNOSTIC TESTING IS NEGATIVE, THE POSSIBLILTY OF A FALSE NEGATIVE RESULT SHOULD BE CONSIDERED IN THE CONTEXT OF A PATIENT'S RECENT EXPOSURES AND THE PRESENCE OF CLINICAL SIGNS AND SYMPTOMS CONSISTENT WITH COVID-19. THE POSSIBILITY OF A FALSE NEGATIVE RESULT SHOULD ESPECIALLY BE CONSIDERED IF THE PATIENT'S RECENT EXPOSURES OR CLINICAL PRESENTATION INDICATE THAT COVID-19 IS LIKELY, AND DIAGNOSTIC TESTS FOR OTHER CAUSES OF ILLNESS (e.g., OTHER RESPIRATORY ILLNESS) ARE NEGATIVE. IF COVID-19 IS STILL SUSPECTED BASED ON EXPOSURE HISTORY TOGETHER WITH OTHER CLINICAL FINDINGS, RE-TESTING SHOULD BE CONSIDERED BY HEALTHCARE PROVIDERS IN CONSULTATION WITH PUBLIC HEALTH AUTHORITIES. Performed By: #### 2 [id number] #### [facility],[address] [place] [address] 42884 ED MED ADMINISTRATION DETAIL on 04-19-2024 ED MED ADMINISTRATION DETAIL Awning Maker Medication Administration Record [address] [place] [address] [id number] 04/19/2024 Patient: KIKO HAN Sex: Female : 2000 Age: 24y MEASUREMENTS: Wt: 81.6 kg, Ht/Umer: 64.0 in, BMI: 30.90 ALLERGIES: Bactrim Medication Ordered Medication Administration Date/Time IV NS 0.9 % 1000 07:53 04/19 IV NS 0.9 % 1000 mL started in bag#1 1000 mL at Started mL at 999 mL/hr 999 mL/hr via Site# 1. Allergies verified and confirmed 5 rights. Via 07:53 04/19/2024 (NOW x1) IV pump. IV patency established. IV site checked: no pain, redness, Karol Castillo, R.N. or swelling. IV flushed thoroughly pre-medication administration. Stopped Information reviewed with patient including reason for taking this 09:04/19/2024 medication. - 07:54 Mehrdad Plascencia R.N. Scanned 09:04/19 Medication Discontinued: bag #1 completed. Total amount infused: 1000 mL. IV patency established. IV site checked: no pain, redness, or swelling. IV flushed thoroughly post-medication administration. - 10:16 Tahira Figueroa R.N. 1 of 2 Awning Maker Medication Ordered Medication Administration Date/Time IV NS 0.9 % 1000 09:04/19 IV NS 0.9 % 1000 mL started in bag#2 1000 mL at Started mL at 500 mL/hr 500 mL/hr via Site# 1. Allergies verified and confirmed 5 rights. Via 09:04/19/2024 (NOW x1) IV pump. IV patency established. IV site checked: no pain, redness, Tahira Figueroa R.N. or swelling. IV flushed thoroughly pre-medication administration. Stopped Information reviewed with patient and spouse. - 09:19 Tahira 11:24 04/19/2024 Mehrdad Figueroa R.N. Scanned 11:04/19 Medication Discontinued: bag #2. Total amount infused: 1000 mL. IV patency established. IV site checked: no pain, redness, or swelling. IV flushed thoroughly post-medication administration. - 11:24 Keri Lutz R.N. KetorOLAC 09:04/19 KetorOLAC (Toradol) IVP 15 mg given via Site# 1. Given (Toradol) IVP 15 mg Allergies verified and confirmed 5 rights. IV patency established. IV 09:18 04/19/2024 (NOW x1) site checked: no pain, redness, or swelling. IV flushed thoroughly Tahira Figueroa R.N. pre-medication administration. Information reviewed with patient Scanned and spouse. Medication Wastage: 15 mg wasted. - 09: aThira Fiugeroa R.N. 2 of 2 Normal [facility] ED NURSES CLINICAL NOTEon ED NURSES CLINICAL NOTE Nurse Narrative Nurse Clinical Narrative [address] [place] [address] [id number] 04/19/2024 Patient: KIKO HAN Sex: Female : 2000 Age: 24y Disposition: Discharge to Home Disposition Decision Time: 11:04/19/2024 Departure Time: 11:04/19/2024 TRIAGE Arrived by private vehicle. Historian: patient. Accompanied by (Significant other). Patient has a primary care physician. Primary physician (Maria Del Rosario Saldana). Triage time: 07:22 04/19/2024. Acuity: LEVEL 2. Chief Complaint: SORE THROAT and (weakness, vaginal bleeding). Alert. Onset. (about 3 days ago). The patient has had fatigue, a headache and diarrhea. ( IUD removed 03/14, saturating tampons hourly with bright red blood since 04/17.). SEPSIS SCREEN: NEGATIVE. SIRS criteria negative: heart rate greater than 90. No possible sources of infection. -- 07:38 04/19/24 BETY Carlos R.N. 07:37 04/19/24. BP: 125/80 MAP: 95. HR: 135. RR: 18. O2 saturation: 95% Temperature: 99.5 F (oral). Pain level now 11/14. -- 07:37 04/19/24 BETY Carlos R.N. Measurements: 07:37 04/19/24 Wt: 81.6 kg, Ht/Umer: 64.0 in, BMI: 30.90 -- 07:37 04/19/24 BETY Carlos R.N. Medications: PROzac 40 mg capsule: 40 mg once a day . -- 07:35 04/19/24 BETY Carlos R.N. 1 of 4 Nurse Narrative Allergies: Bactrim -- 07:35 04/19/24 BETY Carlos R.N. Problems: no known problem -- 07:35 04/19/24 BETY Carlos R.N. 07:04/19/24. Preferred pharmacy ([facility]). -- 07:38 04/19/24 BETY Carlos R.N. ADDITIONAL SURGERIES: Tonsillectomy -- 07:35 04/19/24 BETY Carlos R.N. History 07:04/19/24. PAST MEDICAL HX: Last normal menstrual period unknown. Denies current . SOCIAL HX: Never smoker. No alcohol use or drug use. The patient has not traveled outside the [place] Infectious disease exposure: No infectious disease exposure. ABUSE ASSESSMENT: The patient answered yes to the question(s) Do you feel safe in your home? and no to the question(s) Are you afraid to go home?. SELF HARM ASSESSMENT: Self harm assessment was performed. The patient answered no to the question(s) Have you recently felt down, depressed, or hopeless? and Do you have thoughts of harming or killing yourself?. FALL RISK ASSESSMENT: Fall risk assessment completed. No risk factors identified. -- 07:38 04/19/24 BETY Carlos R.N. Interventions 07:04/19/24. Allergy band on patient. -- 07:38 04/19/24 BETY Carlos R.N. 2 of 4 Nurse Narrative 08:04/19/24. Droplet isolation precautions initiated. -- 08:45 04/19/24 BETY Navarro R.N. PHYSICAL ASSESSMENT 09:54 04/19/24. Ambulatory to room. ( Pt got her IUD taken out last . She states on Friday she came down with flu-like symptoms, stuffed nose, body aches, and she has noticed she has a heavy menses, which started on Friday as well. Pt is congested and is coughing up phlegm.). GENERAL / NEURO / PSYCH: Alert. Oriented X 4. HEENT: Pupils equal, round and reactive to light. Sinus tenderness present. Runny nose. Mucous membranes are pink. RESPIRATORY: Respirations not labored. Cough. Breath sounds within normal limits. CVS: Cardiac rhythm: sinus tachycardia. Capillary refill less than 2 seconds. Pulses within normal limits. GI / : ( heavy menstrual cycle). The patient has had nausea. SKIN: Skin is warm and dry. -- 10:39 04/19/24 BETY Castillo R.N. NURSING PROGRESS NOTES 07:43 04/19/24. Site #1 started via IV in the right wrist with a 20g angiocath with aseptic technique and good blood return; 1 attempt. Blood drawn: rainbow set and vela tube(s). Labeled in the presence of the patient and sent to the lab. Saline lock flushed with 5 mL saline. -- 07:50 04/19/24 BETY Castillo R.N. 07:53 04/19/24. IV NS 0.9 % 1000 mL started in bag#1 1000 mL at 999 mL/hr via Site# 1. Allergies verified and confirmed 5 rights. Via IV pump. IV patency established. IV site checked: no pain, redness, or swelling. IV flushed thoroughly pre-medication administration. Information reviewed with patient including reason for taking this medication. -- 07:54 04/19/24 BETY Castillo R.N. 09:10 04/19/24. IV NS 0.9 %: Medication Discontinued. bag #1 completed. Total amount infused: 1000 mL. IV patency established. IV site checked: no pain, redness, or swelling. IV flushed thoroughly post-medication administration. -- 10:16 04/19/24 BETY Figueroa R.N. 09:18 04/19/24. KetorOLAC (Toradol) IVP 15 mg given via Site# 1. Allergies verified and confirmed 5 rights. IV patency established. IV site checked: no pain, redness, or swelling. IV flushed thoroughly pre-medication administration. Information reviewed with patient and spouse. Medication Wastage: 15 mg wasted. -- 09:18 04/19/24 BETY Figueroa R.N. (more content not included)... Normal [facility] ED ORDER SHEET (CPOE ONLY)on 04-19-2024 ED ORDER SHEET (CPOE ONLY) Order Sheet Order Sheet [facility] [place] [place] [address] [id number] 04/19/2024 Patient: KIKO HAN Sex: Female : 2000 Age: 24y MEASUREMENTS: Wt: 81.6 kg, Ht/Umer: 64.0 in, BMI: 30.90 ALLERGIES: Bactrim MEDICATION/IV/DRIP/FLUID ORDERS Order Description Priority Entered Acknowledged Completed IV NS 0.9 %1000 mL at 999 07:31 04/19/2024 07:38 07:54 mL/hr (NOW x1) Briana Foote, 04/19/2024 04/19/2024 D.Karol Gonzales R.NMusa R.N. IV NS 0.9 %1000 mL at 500 08:29 04/19/2024 09:19 mL/hr (NOW x1) Briana Foote, 04/19/2024 D.Silas Figueroa, R.NMusa Reason for ordering with alerts: Benefits outweigh risks --08:29 04/19/2024 Briana Foote D.O. KetorOLAC (Toradol) IVP15 mg 08:29 04/19/2024 09:18 (NOW x1) Briana Foote, 04/19/2024 Adebayo Figueroa, R.NMusa Reason for ordering with alerts: Benefits outweigh risks --08:29 04/19/2024 Briana Foote D.O. 1 of 3 Order Sheet LAB ORDERS Order Description Priority Entered Acknowledged Collected Completed CBC w Diff Stat Stat 07:31 04/19/2024 07:33 04/19/2024 10:39 04/19/2024 Karol Alcantara Natalie Yoder, D.O. R.N. R.N. Lactate, Serum Stat Stat 07:31 04/19/2024 07:33 04/19/2024 10:39 04/19/2024 Briana DaryKarol john Natalie Yoder, D.O. R.NMusa R.NMusa EKG - ED Stat Stat 07:31 04/19/2024 07:33 04/19/2024 10:39 04/19/2024 Karol Alcantara Natalie Yoder, D.O. R.N. R.N. Urinalysis Stat Stat 07:31 04/19/2024 07:33 04/19/2024 10:39 04/19/2024 Karol Alcantara Natalie Yoder, D.O. R.N. R.N. Flu Swab (Influenzae Stat 07:31 04/19/2024 07:33 04/19/2024 10:39 04/19/2024 AAg) Stat Karol Alcantara Natalie Yoder, D.O. R.N. R.NMusa Rapid COVID (SARS) Stat 07:31 04/19/2024 07:33 04/19/2024 10:39 04/19/2024 ANTIGEN TEST Stat Karol Alcantara Natalie Yoder, D.O. R.N. R.N. Urine - HCG Stat 07:31 04/19/2024 07:33 04/19/2024 10:39 04/19/2024 Stat Karol Alcantara Natalie Yoder, D.O. R.N. R.NMusa DIAGNOSTIC STUDY ORDERS 2 of 3 Order Sheet Order Description Priority Entered Acknowledged Completed Chest 2V Stat Stat 10:00 04/19/2024 10:15 10:39 Briana Foote, 04/19/2024 04/19/2024 Karol Sahu R.N. R.N. Reason for Study: Cough STAFF ORDERS Order Description Priority Entered Acknowledged Collected Completed IV Saline Lock 07:31 04/19/2024 07:33 04/19/2024 10:39 04/19/2024 Karol Alcantara Natalie Yoder, D.O. R.N. R.NMusa [Electronically signed by Briana Foote D.O. (04/19/2024 20:40 EST)] 3 of 3 Normal [facility] ED PHYSICIAN CLINICAL REPORT on 04-19-2024 ED PHYSICIAN CLINICAL REPORT Narrative Physician Clinical Narrative [facility] [address] [place] [address] [id number] 04/19/2024 Patient: KIKO HAN Sex: Female : 2000 Age: 24y Disposition: Discharge to Home Disposition Decision Time: 11:19 04/19/2024 Departure Time: 11:39 04/19/2024 Measurements Wt: 81.6 kg, Ht/Umer: 64.0 in, BMI: 30.90 Initial Vital Sign Measured Time BP MAP HR RR O2Sat ETCO2 Temp Pain GCS RTS 07:37 04/19/2024 125/80 95 135 18 95% 99.5 F 8 Time Seen: 07:25 04/19/2024. Arrived- By private vehicle. Historian- patient. HISTORY OF PRESENT ILLNESS Chief Complaint: DIZZINESS, WEAKNESS and VERTIGO (ROOM). ( Patient stated 2 days ago she started feeling poorly she complained of headaches body aches just feels weak all over. She has had decreased appetite. She did have her IUD removed on Friday. Then started having vaginal bleeding on Friday. She also has a sore throat no nausea vomited have diarrhea she has feels weak and tired). This started 2 days ago and is still present. Not described as a sense of movement or confusion or feeling faint. Described as feeling light-headed and weak all over. No nausea or vomiting. REVIEW OF SYSTEMS NEUROLOGICAL: The patient has had a headache and weakness. No difficulty walking. No fainting episodes. EYES: No double vision. CVS: No chest pain or palpitations. RESPIRATORY: The patient has had a cough. No difficulty breathing. GI: No abdominal pain. The patient has had diarrhea. SKIN: No skin rash. Narrative ENDO/HEME/LYMPH: No enlarged lymph nodes. MUSCULOSKELETAL: No joint pain. CONSTITUTIONAL: The patient has had fever and chills. THROAT: The patient has had a sore throat. PAST HISTORY See nurses notes. no known problem Surgeries: Tonsillectomy Medications: PROzac 40 mg capsule: 40 mg once a day . Allergies: Bactrim SOCIAL HISTORY Never smoker. No alcohol use. ADDITIONAL NOTES The nursing notes have been reviewed. PHYSICAL EXAM Appearance: Alert. No acute distress. Odor of alcohol is not present. Speech is not slurred. Eyes: Pupils equal, round and reactive to light. ENT: Normal ENT inspection. Dry mucous membranes present. Neck: Normal inspection. Neck supple. CVS: Tachycardia. Heart sounds normal. Respiratory: No respiratory distress. Painless inspiration. Abdomen: Soft and nontender. Back: Normal inspection. Skin: Skin warm and dry. Normal skin color. Normal skin turgor. Extremities: No lower extremity edema. Neuro: Alert. Oriented X 3. Cranial nerves normal (as tested). No motor deficit. No sensory deficit. Narrative LABS, X-RAYS, AND EKG Laboratory Tests: CBC + DIFF Final MARVIN: 04/19/2024 07:40:00 EST MsgRcvd: 04/19/2024 08:44 EST Lab Test Result Reference Status Received Comments 04/19/2024 08:44 CBC-COMPLETE CBC + DIFF Final EST BLOOD COUNT 14.5 x 10/UL 04/19/2024 08:44 WBC 4.5 - 10.8 Final Above high normal EST 04/19/2024 08:44 RBC 4.65 x 10/UL 4.10 - 5.30 Final EST 04/19/2024 08:44 HEMOGLOBIN 15.5 g/dl 12.0 - 16.0 Final EST 04/19/2024 08:44 HEMATOCRIT 44.1 % 34.0 - 46.0 Final EST 04/19/2024 08:44 MCV 95 fl 80 - 99 Final EST 04/19/2024 08:44 MCH 33 pg 27 - 33 Final EST 04/19/2024 08:44 MCHC 35 X10 3 32 - 36 Final EST 04/19/2024 08:44 RDW/CV 12.1 % 12.0 - 15.6 Final EST 04/19/2024 08:44 PLATELET 375 x10/UL 150 - 450 Final EST Narrative 04/19/2024 08:44 AUTOMATED MPV 7.1 fl 6.6 - 10.5 Final EST DIFFERENTIAL 89.3 % 04/19/2024 08:44 NEUT % 46.0 - 76.0 Final Above high normal EST 3.9 % 04/19/2024 08:44 LYMPH % 20.0 - 45.0 Final Below low normal EST 04/19/2024 08:44 MONOS % 6.3 % 0.0 - 10.0 Final EST 04/19/2024 08:44 EO % 0.4 % 0.0 - 7.0 Final EST 04/19/2024 08:44 BASO % 0.1 % 0.0 - 2.0 Final EST 0.57 x10/UL 04/19/2024 08:44 Lymph # 0.80 - 2.80 Final Below low normal EST 12.97 x10/UL 04/19/2024 08:44 Neut # 1.50 - 7.10 Final Above high normal EST 04/19/2024 08:44 [place] # 0.91 x10/UL 0.20 - 1.00 Final EST 04/19/2024 08:44 EO # 0.05 x10/UL 0.00 - 0.50 Final EST 04/19/2024 08:44 Baso # 0.01 x10/UL 0.00 - 0.10 Final EST 04/19/2024 08:44 MANUAL DIFF N/A New Order EST 04/19/2024 08:44 MORPHOLOGY N/A New Order EST CORONAVIRUS (SARS) ANTIGEN TEST Final Narrative MARVIN: 04/19/2024 07:58:00 EST MsgRcvd: 04/19/2024 08:25 EST Lab Test Result Reference Status Received Comments NORMAL: 04/19/2024 SARS ANTIGEN NEGATIVE Final NEGATIVE 08:25 EST INTERNAL 04/19/2024 PASS Final CONTROL 08:25 EST EXTERNAL QC 04/19/2024 YES Final DONE? 08:25 EST Narrative SARS-CoV-2 THIS TEST IS BEING USED UNDER THE FDA EUA PROCEDURE. THIS ASSAY (more content not included)... Normal [facility] ED SUPER BILLon 04-19-2024 ED [facility]ILL [facility] [address] [place] [address] [id number] 04/19/2024 Patient: KIKO HAN Sex: Female : 2000 Age: 24y Item Facility Professional Category Description Code Code Quantity Fee Total Nurse/E/M EMERGENCY 922303 1 $0.00 $0.00 DEPARTMENT VISIT HIGH/URGENT SEVERITY (78430-82) Nurse/IV/IM/Infusions Hydration 876175 3 $0.00 $0.00 additional hour (67111) Nurse/IV/IM/Infusions IVP initial 964967 1 $0.00 $0.00 (95217) Grand Total $0.00 Providers Briana Foote D.O. Chief Complaint DIZZINESS, WEAKNESS and VERTIGO (ROOM). ( Patient stated 2 days ago she started feeling poorly she complained of headaches body aches just feels weak all over. She has had decreased appetite. She did have 1 of 2 Superbill her IUD removed on Friday. Then started having vaginal bleeding on Friday. She also has a sore throat no nausea vomited have diarrhea she has feels weak and tired). Principal Diagnosis Fever. Weakness. Moderate volume depletion with hypovolemia. Moderate dehydration Bronchopneumonia. Influenza type A. ICD-10 Codes R50.9: Fever, unspecified J09.x2: Influenza due to identified novel influenza A virus with other respiratory manifestations E86.0: Dehydration R53.1: Weakness K52.9: Noninfective gastroenteritis and colitis, unspecified E86.9: Volume depletion, unspecified E86.1: Hypovolemia J18.0: Bronchopneumonia, unspecified organism 2 of 2 Normal [facility] ED VISIT SUMMARYon ED VISIT SUMMARY Visit Overview Visit Overview [address] [address] [id number] 04/19/2024 Patient: KIKO HAN Sex: Female : 2000 Age: 24y 04/19/2024 08:40 PM EST ED Arrival:07:24 04/19/2024 EST Status:not Recent Travel:no Language:eng Adv Directive: Isolation Status:droplet Ethnicity:N Fall Risk:no risk Infectious Disease Exposure:no Measurements:5'4 / 162.6 Self-Harm Status:risk Sepsis Screen:negative cm 180.0 lb / 81.6 kg Chief Complaint:SORE THROAT, (about 3 days ago), (IUD removed 03/14, saturating tampons hourly with bright red blood since 04/17. ), (Maria Del Rosario Ungerer), (Significant other), and (weakness, vaginal bleeding) ALLERGIES Bactrim HOME MEDICATIONS PROzac 40 mg capsule: 40 mg once a day . 1 of 3 Visit Overview PAST MEDICAL HISTORY / PROBLEMS Last normal menstrual period unknown None See nurses notes PAST SURGICAL HISTORY Tonsillectomy SOCIAL HISTORY Smoking status: No Alcohol use: No Drug use: No ED COURSE MEDICATIONS GIVEN IN EMERGENCY DEPARTMENT 07:53 04/19/24 IV NS 0.9 % 1000 mL 999 mL/hr 09:18 04/19/24 KetorOLAC (Toradol) IVP 15 mg 09:18 04/19/24 IV NS 0.9 % 1000 mL 500 mL/hr IV SITE INFORMATION INTAKE OUTPUT REASSESMENT (most recent) 10:16 04/19/24. Reassessment after medication administered. No adverse reaction. Reassessment after fluids administered. The patient reports no complaints. Overall patient status is improved- the patient states feels better. VITAL SIGNS First Vitals Last Vitals Temp 07:37 04/19/24 99.5 F Temp 11:35 04/19/24 99.5 F BP 07:37 04/19/24 125/80 BP 11:35 04/19/24 HR 07:37 04/19/24 135 HR 11:35 04/19/24 2 of 3 Visit Overview First Vitals Last Vitals RR 07:37 04/19/24 18 RR 11:35 04/19/24 16 O2 Sat 07:37 04/19/24 95% O2 Sat 11:35 04/19/24 Pain 07:37 04/19/24 8 Pain 11:35 04/19/24 0 ETCO2 07:37 04/19/24 ETCO2 11:35 04/19/24 GCS 07:37 04/19/24 GCS 11:35 04/19/24 RTS 07:37 04/19/24 RTS 11:35 04/19/24 PROCEDURES NURSING INTERVENTIONS LABS / STUDIES LABS / STUDIES ORDERED CBC w Diff Chest 2V EKG - ED Flu Swab (Influenzae AAg) Lactate, Serum Rapid COVID (SARS) ANTIGEN TEST Urinalysis Urine - HCG CLINICAL IMPRESSION BRONCHOPNEUMONIA FEVER INFLUENZA TYPE A MODERATE DEHYDRATION MODERATE VOLUME DEPLETION WITH HYPOVOLEMIA WEAKNESS 3 of 3 Normal [facility] ED VITALS FLOW SHEETon 04-19 ED VITALS FLOW SHEET Vitals Vital Sign Flow Sheet [facility] [address] [facility] [place] [address] [phone] 04/19/2024 Patient: KIKO HAN Sex: Female : 2000 Age: 24y Measurements Wt: 81.6 kg, Ht/Umer: 64.0 in, BMI: 30.90 Measured Time BP MAP HR RR O2Sat ETCO2 Temp Pain GCS RTS 11:35 04/19/2024 16 99.5 F 0 11:33 04/19/2024 97 95% 11:28 04/19/2024 99 97% 11:27 04/19/2024 127/80 88 99 11:23 04/19/2024 102 96% 11:18 04/19/2024 100 96% 11:13 04/19/2024 100 96% 11:08 04/19/2024 99 96% 11:03 04/19/2024 101 97% 10:58 04/19/2024 99 96% 10:57 04/19/2024 122/81 89 97 10:53 04/19/2024 100 95% 10:48 04/19/2024 99 95% 10:43 04/19/2024 101 96% 10:38 04/19/2024 102 96% 1 of 3 Vitals Measured Time BP MAP HR RR O2Sat ETCO2 Temp Pain GCS RTS 10:33 04/19/2024 123 97% 10:28 04/19/2024 107 96% 10:27 04/19/2024 131/78 92 98 10:22 04/19/2024 105 95% 10:17 04/19/2024 101 96% 09:57 04/19/2024 104 95% 09:57 04/19/2024 112/73 81 103 09:52 04/19/2024 105 95% 09:47 04/19/2024 112 96% 09:42 04/19/2024 110 97% 09:37 04/19/2024 108 96% 09:32 04/19/2024 110 95% 09:27 04/19/2024 111 95% 09:27 04/19/2024 127/75 85 112 09:22 04/19/2024 114 95% 09:17 04/19/2024 109 91% 09:12 04/19/2024 109 91% 09:07 04/19/2024 110 91% 09:02 04/19/2024 109 92% 08:57 04/19/2024 111 92% 08:57 04/19/2024 136/81 89 111 08:52 04/19/2024 111 96% 08:47 04/19/2024 120 95% 08:42 04/19/2024 110 94% 08:37 04/19/2024 115 96% 2 of 3 Vitals Measured Time BP MAP HR RR O2Sat ETCO2 Temp Pain GCS RTS 08:32 04/19/2024 113 95% 08:27 04/19/2024 116 95% 08:27 04/19/2024 118/85 92 114 08:22 04/19/2024 119 95% 08:17 04/19/2024 114 93% 08:12 04/19/2024 119 96% 08:07 04/19/2024 118 96% 08:02 04/19/2024 116 95% 07:57 04/19/2024 113 95% 07:57 04/19/2024 136/81 92 119 07:37 04/19/2024 125/80 95 135 18 95% 99.5 F 8 3 of 3 [facility] INFLUENZA VIRUS RAPID A/Bon 04-19-2024 INFLUENZA VIRUS RAPID A/B INFLUENZA A POSITIVE INFLUENZA B NEGATIVE INTERNAL NEG QC PASS INTERNAL POS QC PASS EXTERNAL QC DONE? YES SEND TO IC? YES A NEGATIVE TEST RESULT DOES NOT EXCLUDE INFECTION WITH INFLUENZA A OR B. THEREFORE, THE RESULTS OBTAINED FROM THIS FLU TEST SHOULD BE USED IN CONJUCTION WITH CLINICAL FINDINGS TO MAKE AN ACCURATE DIAGNOSIS. A POSITIVE RESULT DOES NOT RULE OUT CO-INFECTIONS WITH OTHER PATHOGENS OR IDENTIFY ANY SPECIFIC INFLUENZA A VIRUS SUBTYPE.CO-INFECTION WITH INFLUENZA A AND B IS RARE. IT IS RECOMMENDED THAT DUAL POSITIVE RESULTS BE CONFIRMED BY VIRAL CULTURE OR AN FDA-CLEARED INFLUENZA A AND B MOLECULAR ASSAY. INDIVIDUALS WHO HAVE RECEIVED NASALLY ADMINISTERED INFLUENZA A VACCINE MAY TEST POSITIVE IN COMMERCIALLY AVAILABLE INFLUENZA RAPID DIAGNOSTIC TESTS FOR UP TO THREE DAYS. RESULT CRITICAL? YES { CALLED TO INA LYNCH BY DN AT 0825 { READ BACK BY INA LYNCH AT 0825 [facility] Comment on above: Performed By: #### 2 [id number] ####[facility],[address] [place] [address] LACTATEon 04-19-2024 Lactate [Moles/Vol] 0.9 mmol/L Normal 0.4 - 2.0 [facility] Comment on above: Performed By: #### 2 [id number] #### [facility],[address] [place], [place] [id number] URINEon 04-19-2024 Beta HCG ( test) Ql (U) Negative Normal NEGATIVE [facility] Comment on above: Performed By: #### 2 [id number] #### [facility],[address] [place] [address] EXTERNAL QC DONE? YES Normal [facility] Comment on above: Performed By: #### 2 64610 #### [facility],[address] [place] [address] INTERNAL QC PASS Normal [facility] Comment on above: Performed By: #### 2 [id number] #### [facility],[address] [place] [address] URINALYSISon 04-19-2024 Amorphous NONE Normal [facility] Comment on above: Performed By: #### 2 03339 #### [facility],[address] [place] [address]648 Bacteria 1+ Normal [facility] Comment on above: Performed By: #### 2 94192 #### [facility],[address] [place] [address]404 Bilirubin Ql (U) Negative Normal NORMAL: NEGATIVE [facility] Comment on above: Performed By: #### 2 53682 #### [facility],[address] [place] [address] Casts NONE Normal [facility] Comment on above: Performed By: #### 2 [id number] #### [facility],[address] [place], [place] [id number] Clarity (U) clear Normal NORMAL: CLEAR [facility] Comment on above: Performed By: #### 2 53355 #### [facility],[address] [place] [address]407 Color (U) kaylyn Normal NORMAL: YELLOW [facility] Comment on above: Performed By: #### 2 76988 #### [facility],[address] [place], [place] [id number] Crystals LM Nom (Urine sed) NONE Normal [facility] Comment on above: Performed By: #### 2 81480 #### [facility],[address] [place], [place] [id number] Epi Cells FEW Normal [facility] Comment on above: Performed By: #### 2 32742 #### [facility],[address] [place], [place] [id number] Glucose Ql (U) NORM Normal NORMAL: NORMAL [facility] Comment on above: Performed By: #### 2 08407 #### [facility],[address] [place] [address]20 Hemoglobin Ql (U) 250 Abnormal NORMAL: NEGATIVE [facility] Comment on above: Performed By: #### 2 42932 #### [facility],[address] [place] [address]2972 Ketone 50 Abnormal NORMAL: NEGATIVE [facility] Comment on above: Performed By: #### 2 99507 #### [facility],[address] [place] [address] 25570 Leukocytes Negative Normal NORMAL: NEGATIVE [facility] Comment on above: Performed By: #### 2 56913 #### [facility],[address] [place] [address] 95962 Mucous 1+ Normal [facility] Comment on above: Performed By: #### 2 30247 #### [facility],[address] [place] [address]754 Nitrite Ql (U) Negative Normal NORMAL: NEGATIVE [facility] Comment on above: Performed By: #### 2 87360 #### [facility],[address] [place] [address] pH (U) 5 [pH] Normal NORMAL: 5.0-8.0 [facility] Comment on above: Performed By: #### 2 85060 #### [facility],[address] [place] [address] Protein Ql (U) 30 Abnormal NORMAL: NEGATIVE [facility] Comment on above: Performed By: #### 2 77463 #### [facility],[address] [place] [address] Rbc 5-10 Normal 0-3/hpf [facility] Comment on above: Performed By: #### 2 38415 #### [facility],[address] [place] [address] Sp [place] 1.025 Normal NORMAL: 1.010-1.030 [facility] Comment on above: Performed By: #### 2 83332 #### [facility],[address] [place] [address] Specimen Type R Normal [facility] Comment on above: Performed By: #### 2 77751 #### [facility],[address] [place] [address] Urinalysis dipstick W Reflex Microscopic panel (U) SEE BELOW Normal [facility] Comment on above: Result Comment: MICR OSCOPIC Performed By: #### 2 02330 #### [facility],[address] [place], [place] [id number] Urobilinog NORM Normal NORMAL: NORMAL [facility] Comment on above: Performed By: #### 2 47224 #### [facility],[address] [place] [address] Wbc 1-5 Normal 0-5/hpf [facility] Comment on above: Performed By: #### 2 92211 #### [facility],[address] [place], [place] [id number] Yeast NONE Normal [facility] Comment on above: Performed By: #### 2 35584 #### [facility],[address] [facility] [address] Hearing Therapy Teacher Office Visit Reporton 04-14-2024 Hearing Therapy Teacher Office Visit Report [facility] [address] [facility], [address] [place] [address] OFFICE VISIT Date of Service: 04/14/24 MR#: [id number] Acct: [id number] Name: YRN HAN Rep #: [id number] : 2000 Provider: ORQUIDEA alvarado Age/Sex: 24/F Location: [facility] Status: Signed Intake Vital Signs 11/27/22 13:04 04/14/24 10:56 04/14/24 11:00 Height 5 ft 3 in 5 ft 3 in 5 ft 3 in Weight: 220 lb 2 oz BMI 38.9 BP 120/82 H Intake Visit Reasons: IUD REMOVAL Chief Complaint: IUD removal Parts Processor Required: No Is patient in pain?: No Allergies sulfamethoxazole (From Bactrim) Allergy (Intermediate, Verified 04/14/24 10:55) Rash trimethoprim (From Bactrim) Allergy (Intermediate, Verified 04/14/24 10:55) Rash Medications ???Medication ???Instructions ???Recorded ???Confirmed ???Type fluoxetine 40 mg capsule (Prozac) 40 mg PO QDAY 04/14/24 04/14/24 History Is last menstrual period known: No Post menopausal: No Patient : No : No PFSH Medical History History of pre-eclampsia Spontaneous vaginal delivery Surgical History History of tonsillectomy Family History Mother Diabetes Social History adopted: No household members: [facility] number of children: 2 current occupational status: employed current occupation: [employer] pets and animals: Yes history of recent travel: No sexually active: Yes Smoking Status: Never smoker second hand exposure: Yes alcohol intake: never substance use type: does not use seatbelt use: always do you feel safe at home: Yes additional social history: RubyjaylynZachary BaptisteieZachary Volodymyr ryan (son Antonio age 4) HPI IUD REMOVAL Details: YRN HAN is a 24 year old who presents for IUD removal to attempt . She is overdue for pap. History 2 Elective abortions Hx Para 1 Spontaneous abortions Hx # Term Pregnancies 1 Ectopic pregnancies Hx # Pregnancies 1 Multiple births # of living children 2 Past Pregnancies Del. Date Name GA/Weeks Outcome Route Bth Weight Gen Labor [facility] F[facility] Unknown Admitted for in ductiion for pre-e with severe features 05/23/15 [place] 38 live - full term 7lbs 14oz Female 9 hours epidural [facility] EB 01/11/21 Gro[place] G Inna Delivery Date: 05/23/15 Last Updated by: Darcy Ferrara Nuchal cord x two reduced ROS Const Constitutional: Reports system reviewed and no additional complaints, except as documented Eyes Eyes: Reports system reviewed and no additional complaints, except as documented GI GI: Denies abdominal pain or change in bowel habits : Reports as per HPI Exam Const General: cooperative and no acute distress Orientation: oriented x3 General: bladder normal to palpation External Female Exam: normal external appearance and normal appearance of the urethra Urethra: normal appearance of the urethra Speculum Exam - Vagina: normal appearance of the vagina, normal vaginal discharge, no lesions and nontender Speculum Exam - Cervix: normal appearance of the cervix Bimanual Exam- Vagina Uterus: normal bimanual exam, uterine size normal, bladder normal to palpation, uterine shape normal, uterine mobility normal and non-tender Bimanual Exam- Adnexa, other: normal adnexae, no masses and non-tender Office Procedures IUD Removal IUD Removal Details: Sign out documentation: Completed Procedure: Speculum placed in vagina, IUD string visualized and grasped with ring forceps. IUD easily removed in its entirety and patient tolerated well. Coding Level of Care Code Off vis,est,level 3 Diagnoses Encounter for IUD removal Z30.432 Assessment and Plan Assessment and Plan (1) Encounter for IUD removal: Orders: Orders IUD Removal Today Z30.432 - Encounter for removal of intrauterine contraceptive device Plan IUD easily removed Start vitamin Condoms until ready to conceive Thin prep pap Call with first positive test 04/14/24 1120 Date Maegan Dillon ASSISTANT PRODUCTION EDITOR ASSISTANT PRODUCTION EDITOR-C Cosigner Signature: Date (if applicable) CC: Normal [facility] Coronavirus 2019on 1 COVID 19 Result ASSISTANT PRODUCTION EDITOR Normal Negative for COVID19 (SARS CoV2) by PCR. [facility] Comment on above: Result Comment: Nega tive for This test was developed and its performance characteristics determined by [facility]'s [facility]. This test has been authorized by FDA under an Emergency Use Authorization (EUA). This test has been validated in accordance with the FDA's Guidance Document Policy for Diagnostics Testing in Laboratories Certified to Perform High Complexity Testing under CLIA prior to Emergency use Authorization for Coronavirus Disease 2019 during the Public Health Emergency issued on June 05, 2019. COVID19 (SARS This test was developed and its performance characteristics determined by [facility]'s [facility]. This test has been authorized by FDA under an Emergency Use Authorization (EUA). This test has been validated in accordance with the FDA's Guidance Document Policy for Diagnostics Testing in Laboratories Certified to Perform High Complexity Testing under CLIA prior to Emergency use Authorization for Coronavirus Disease 2019 during the Public Health Emergency issued on June 05, 2019. CoV2) by PCR. This test was developed and its performance characteristics determined by [facility]'s [facility]. This test has been authorized by FDA under an Emergency Use Authorization (EUA). This test has been validated in accordance with the FDA's Guidance Document Policy for Diagnostics Testing in Laboratories Certified to Perform High Complexity Testing under CLIA prior to Emergency use Authorization for Coronavirus Disease 2019 during the Public Health Emergency issued on June 05, 2019. COVID 19 Source ASSISTANT PRODUCTION EDITOR ASSISTANT PRODUCTION EDITOR Normal [facility] Coronavirus 2019on 1 COVID 19 Result ASSISTANT PRODUCTION EDITOR Normal Negative for COVID19 (SARS CoV2) by PCR. [facility] Comment on above: Result Comment: Nega tive for This test was developed and its performance characteristics determined by [facility]'s [facility]. This test has been authorized by FDA under an Emergency Use Authorization (EUA). This test has been validated in accordance with the FDA's Guidance Document Policy for Diagnostics Testing in Laboratories Certified to Perform High Complexity Testing under CLIA prior to Emergency use Authorization for Coronavirus Disease 2019 during the Public Health Emergency issued on June 05, 2019. COVID19 (SARS This test was developed and its performance characteristics determined by [facility]'s [facility]. This test has been authorized by FDA under an Emergency Use Authorization (EUA). This test has been validated in accordance with the FDA's Guidance Document Policy for Diagnostics Testing in Laboratories Certified to Perform High Complexity Testing under CLIA prior to Emergency use Authorization for Coronavirus Disease 2019 during the Public Health Emergency issued on June 05, 2019. CoV2) by PCR. This test was developed and its performance characteristics determined by [facility]'s [facility]. This test has been authorized by FDA under an Emergency Use Authorization (EUA). This test has been validated in accordance with the FDA's Guidance Document Policy for Diagnostics Testing in Laboratories Certified to Perform High Complexity Testing under CLIA prior to Emergency use Authorization for Coronavirus Disease 2019 during the Public Health Emergency issued on June 05, 2019. COVID 19 Source ASSISTANT PRODUCTION EDITOR ASSISTANT PRODUCTION EDITOR Normal [facility] CNCOon 07-08-2017 [facility] Letter [facility], [address] [address]Wqioc: [phone]: [phone] 2017RE: Kiko Ornelas [address] [place] [id number] Parent/Guardian of Kiko,We have tried to contact you in regards to your child'Saw for Routine PhysicalOur efforts to reach you have been unsuccessful. Please call [phone] to coordinate your child's plan of care. Thank you and we lookforward to talking with you.Sincerely,[facility] Normal [facility] Gram stain for investigation of transfusion reaction Microscopic observation Gram stain Nom (Unsp spec) [facility] Work Phone: Vital Signs Date Time Vital Sign Value Performing Clinician Rosemary veliz 09-15-2024 10:01-0400 Body height 160.02 cm No Primary Care Physician [facility] 09-15-2024 09:58-0400 Body mass index (BMI) [Ratio] 38.5 kg/m2 No Primary Care Physician [facility] 09-15-2024 09:58-0400 Body weight 98.48 kg No Primary Care Physician [facility] 09-15-2024 09:58-0400 Diastolic blood pressure 82 mm[Hg] No Primary Care Physician [facility] 09-15-2024 09:58-0400 Systolic blood pressure 118 mm[Hg] No Primary Care Physician [facility] 04-10-2022 06:10-0500 Body height 160.02 cm [facility] Work Phone: 04-10-2022 06:10-0500 Body mass index (BMI) [Ratio] 35.4 kg/m2 [facility] Work Phone: 04-10-2022 06:10-0500 Body temperature 98.1 [degF] [facility] Work Phone: 04-10-2022 06:10-0500 Body weight 90.7 kg [facility] Work Phone: 04-10-2022 06:10-0500 Diastolic blood pressure 88 mm[Hg] [facility] Work Phone: 04-10-2022 06:10-0500 Heart rate 84 /min [facility] Work Phone: 04-10-2022 06:10-0500 Respiratory rate 16 /min [facility] Work Phone: 04-10-2022 06:10-0500 SaO2% (BldA) [Mass fraction] 98 % [facility] Work Phone: 04-10-2022 06:10-0500 Systolic blood pressure 121 mm[Hg] [facility] Work Phone: 11-28-2021 12:05-0400 Body height 162.56 cm No Primary Care Physician [facility] Work Phone: 11-28-2021 12:02-0400 Body mass index (BMI) [Ratio] 34.9 kg/m2 No Primary Care Physician [facility] Work Phone: 11-28-2021 12:02-0400 Body weight 89.35 kg No Primary Care Physician [facility] Work Phone: 11-28-2021 12:02-0400 Diastolic blood pressure 78 mm[Hg] No Primary Care Physician [facility] Work Phone: 11-28-2021 12:02-0400 Systolic blood pressure 122 mm[Hg] No Primary Care Physician [facility] Work Phone: Encounters Encounter Date Encounter Type Care Provider Facility Start: 09-15-2024 End: 09-15-2024 ambulatory No Primary Care Physician [facility] Work Phone: Start: 09-15-2024 End: 09-15-2024 Patient encounter procedure Maegan HEARD -[facility] Work Phone: Start: 08-23-2024 ambulatory IVON ANTOINE [facility] Start: 08-20-2024 End: 08-20-2024 ambulatory IVON ANTOINE [facility] Start: 08-20-2024 Encounter for genera l adult medical examination without abnormal findings IVON ANTOINE [facility] Start: 04-19-2024 End: 04-19-2024 Emergency department patient visit BRIANA FOOTE [facility] Start: 04-14-2024 End: 04-14-2024 ambulatory Maegan Carranza NP Facility:[facility] Start: 04-14-2024 End: 04-14-2024 ambulatory Maegan Carranza ASSISTANT PRODUCTION EDITOR Facility:[facility] Start: 04-10-2022 End: 04-10-2022 Emergency department patient visit [facility]Emergency [facility] Start: 11-28-2021 End: 11-28-2021 ambulatory No Primary Care Physician [facility] Work Phone: Start: 11-28-2021 End: 11-28-2021 Patient encounter procedure No Primary Care Physician [facility]-Laboratory, Specimen Start: 11-28-2021 End: 11-28-2021 Patient encounter procedure No Primary Care Physician [facility] Procedures Date Procedure Procedure Detail Performing Clinician Start: 04-19-2024 Urinalysis BRIANA JOHN Comment on above: Result Comment: URIN ALYSIS Performed By: #### 2 [id number] #### [facility],[address] [place] [address] Cytopathology proced ure, preparation of smear, genital source No Primary Care Physician Investigation of transfusion reaction No Primary Care Physician Plan of Treatment Date Care Activity Detail Author Start: 09-15-2024 Chlamydia/Neisseria (PCR) Chla mydia/Neisseria (PCR) [facility] Start: 09-15-2024 Hepatitis C virus RN A assay [facility] Start: 09-15-2024 Serologic test for syphilis [facility] Start: 09-15-2024 [facility] Start: 09-15-2024 Polymerase chain hernandez ction analysis [facility] Measurement of Human herpesvirus 2 antibody [facility] Patient Education ED Dental Pain ED Dental Cavity [facility] Work Phone: Patient referral [facility] Work Phone: PCR for Hepatitis C [facility] Polymerase chain hernandez ction analysis [facility] Serologic test for h erpes simplex [facility] Work Phone: Immunizations Immunization Date Immunization Notes Care Provider Fa cility 11-10-2020 tetanus toxoid, redu ana diphtheria toxoid, and acellular pertussis vaccine, adsorbed No Primary Care Physician [facility] Payers Date Payer Category Payer Self-pay [id number] 2024 Unknown [id number] 2000 Unknown [id number] [id number] 2000 Unknown [id number] [id number] Medicaid [id number] Unknown COMMERCIAL OTHER [id number] Unknown [facility] [id number] Unknown [id number] [id number] [id number] Unknown [id number] [id number] [id number] Social History Date Type Detail Facility Start: 11-28-2021 End: 04-10-2022 Tobacco smoking status NHIS Unknown if ever smoked [facility] Work Phone: Start: 2000 Sex Assigned At Female [facility] Start: 09-06-2024 Tobacco smoking stat us NHIS Never smoked tobacco (finding) [facility] Progress note 09-15-2024 Note Date & Type Note Facility 09-15-2024 Progress note [facility] Clinical Note 04-19-2024 Note Date & Type Note Facility 04-19-2024 Note Discharge Instructio ns Discharge Summary [address] [address] [id number] 04/19/2024 Patient: KIKO HAN Sex: Female : 2000 Age: 24y Thank you for visiting [facility]. You have been evaluated today by Briana Foote D.O. for the following condition(s): Principal Diagnosis Fever. Weakness. Moderate volume depletion with hypovolemia. Moderate dehydration Bronchopneumonia. Influenza type A. INSTRUCTIONS Take Tylenol (Acetaminophen) or Motrin (Ibuprofen) as needed for fever control. Take medication according to label instructions. Do not work today, tomorrow. Drink plenty of fluids. Follow-up with: Maria Del Rosario Saldana NP, [facility], Adult and Pediatric, Family [facility], , [address] [place] [address]. (rest. increase fluids. return if any problems or concerns). You have been given the following additional information: Dehydration (Adult) Pneumonia (Adult) 1 of 7 Discharge Instructions Patient Signature Facility Shirt Trimmer Date/Time General Instructions with ExitWriter [address] [address] [phone] 04/19/2024 Patient: KIKO HAN Sex: Female : 2000 Age: 24y Thank you for visiting [facility]. You have been evaluated today by Briana Foote D.O. for the following condition(s): Principal Diagnosis Fever. Weakness. Moderate volume depletion with hypovolemia. Moderate dehydration Bronchopneumonia. Influenza type A. INSTRUCTIONS Take Tylenol (Acetaminophen) or Motrin (Ibuprofen) as needed for fever control. Take medication according to label instructions. Do not work today, tomorrow. Drink plenty of fluids. Follow-up with: Maria Del Rosario Saldana NP, [facility], , [address] [place] [address]. (rest. increase fluids. return if any problems or concerns). 2 of 7 Discharge Instructions ADDITIONAL INFORMATION Dehydration (Adult) Dehydration occurs when your body loses too much fluid. This may be the result of prolonged vomiting or diarrhea, excessive sweating, or a high fever. It may also happen if you don't drink enough fluid when you're sick or out in the heat. Misuse of diuretics (water pills) can also be a cause. Symptoms include thirst, decreased urine output, and darker colored urine. You may also feel dizzy, weak, fatigued, or very drowsy. The diet described below is usually enough to treat dehydration. In some cases, you may need medicine. Home care Drink at least 12, 8-ounce glasses of fluid every day to resolve the dehydration. Fluid may include water; orange juice; lemonade; apple, grape, or cranberry juice; clear fruit drinks; electrolyte replacement and sports drinks; and teas and coffee without caffeine. Don't drink alcohol. If you have been diagnosed with a kidney disease, ask your doctor how much and what types of fluids you should drink to prevent dehydration. If you have kidney disease, fluid can build up in the body. This can be dangerous to your health. If you have a fever, muscle aches, or a headache as a result of a cold or flu, you may take acetaminophen or ibuprofen, unless another medicine was prescribed. If you have chronic liver or kidney disease, or have ever had a stomach ulcer or gastrointestinal bleeding, talk with your healthcare provider before using these medicines. Don't take aspirin if you are younger than 18 and have a fever. In children with fever, aspirin raises the chance for severe liver injury and . Follow-up care Follow up with your healthcare provider, or as advised. When to seek medical advice Call your healthcare provider right away if any of these occur: Continued vomiting 3 of 7 Discharge Instructions Frequent diarrhea (more than 5 times a day); blood (red or black color) or mucus in diarrhea Swollen abdomen or increasing abdominal pain Reduced urine output or extreme thirst Fever of 100.4F (38C) or higher Call 911 Call 911 or get medical care right away if you have any of the following: Weakness, dizziness, or fainting Unusual drowsiness or confusion Blood in vomit or stool Pneumonia (Adult) Pneumonia is an infection deep in the lungs. It is in the small air sacs (alveoli). It may be caused by a virus, fungus, or bacteria. Pneumonia caused by bacteria is often treated with an antibiotic. Severe cases may need to be treated in the hospital. Milder cases can be treated at home. Pneumonia symptoms are a lot like flu symptoms. They include fever, cough (dry or with phlegm), headache, muscle weakness, and pain. These symptoms often get worse in the first 2 days. But they often start to get better in (more content not included)... [facility] Evaluation note Note Date & Type Note Facility Evaluation note Diagnosis Onset Date Vaginitis acute [facility] Work Phone: Evaluation note Note Date & Type Note Facility Evaluation note No assessment information availa ble [facility] Work Phone: Evaluation note Note Date & Type Note Facility Evaluation note Diagnosis Onset Date Resolution Dysmenorrhea acute September 15 9:53am General counseling and advice for contraceptive management acute September 15, 2024 9:53am Possible exposure to sexually transmitted infection noneactive September 15, 2024 9:53am [facility] Work Phone: Progress note Note Date & Type Note Facility Progress note Note Date/Time September 15, 2024 10:24am [facility] [address] [place] [address], [address] [place] [address] OFFICE VISIT Date of Service: 09/15/24 MR#: [id number] Acct: [id number] Name: YRN HAN Rep #: [id number] : 2000 Provider: ORQUIDEA Carranza Age/Sex: 24/F Location: [facility] Status: Signed Intake Vital Signs 09/06/24 12:13 09/15/24 09:58 09/15/24 10:01 Height 5 ft 3 in 5 ft 3 in 5 ft 3 in Weight: 217 lb 2 oz BMI 38.5 BP 118/82 H Intake Visit Reasons: BC Consult Chief Complaint: BC consult Parts Processor Required: No Is patient in pain?: No Allergies sulfamethoxazole (From Bactrim) Allergy (Intermediate, Verified 09/15/24 09:58) Rash trimethoprim (From Bactrim) Allergy (Intermediate, Verified 09/15/24 09:58) Rash Medications ?Medication ?Instructions ?Recorded ?Confirmed ?Type fluoxetine 40 mg capsule (Prozac) 40 mg PO QDAY 09/15/24 History Is last menstrual period known: Yes Last Menstrual Period: 09/09/24 Post menopausal: No Patient : No : No [facility] Medical History History of pre-eclampsia Spontaneous vaginal delivery Surgical History History of tonsillectomy Family History Mother Diabetes Social History adopted: No household members: family housing: condominium number of children: 2 current occupational status: employed current occupation: [employer] pets and animals: Yes history of recent travel: No sexually active: Yes Smoking Status: Never smoker second hand exposure: Yes alcohol intake: never substance use type: does not use seatbelt use: always do you feel safe at home: Yes additional social history: Fiance- Rajesh- [employer] (son Antonio age 4) HPI BC Consult Details: YRN HAN is a 24 year old who presents for contraceptive consult. Had IUD removed 04/2024 to attempt . She and Rajesh no longer together. Hashad new partner but not currently sexually active. Menses about every 3 weeks, lasting 7 days but heavy and painful. Would like another IUD. Denies vaginal discharge or irritation. Female Reproductive History Last Menstrual Period: 09/09/24 History 2 Elective abortions Hx Para 1 Spontaneous abortions Hx # Term Pregnancies 1 Ectopic pregnancies Hx # Pregnancies 1 Multiple births # of living children 2 Past Pregnancies Del. Date Name GA/Weeks Outcome Route Bth Weight Infant Gen Labor Lgth Anesthesia Del Locatn Provider FOB Unknown Admitt ed for inductiion for pre-e with severe features 05/23/15 [place] 38 live - full term 7lbs 14oz [facility] 01/[facility]/21 Reilly Barriga Inna Delivery Date: 05/23/15 Last Updated by: Darcy Ferrara Nuchal cord x two reduced ROS Const Constitutional: Reports system reviewed and no additional complaints, except as documented Eyes Eyes: Reports system reviewed and no additional complaints, except as documented GI GI: Denies abdominal pain or change in bowel habits : Reports as per HPI Exam Const General: cooperative and no acute distress Orientation: oriented x3 HENMT Head: normal to inspection and normocephalic Eyes General: appearance normal, both eyes and all related structures Neck Neck: normal visual inspection Resp Effort & Inspection: normal respiratory effort Neuro Cognition: normal cognition Speech: speech normal Psych Appearance: grossly normal Mood: congruent mood Affect: normal affect Speech and Movement: speech and movement normal Attitude: cooperative Judgment: judgment good Coding Level of Care Code Off vis,est,level 3 Diagnoses Dysmenorrhea N94.6 Possible exposure to sexually transmitted infection Z20.2 General counseling and advice for contraceptive management Z30.09 Assessment and Plan Assessment and Plan (1) Dysmenorrhea: Status: Acute (2) Possible exposure to sexually transmitted infection: (3) General counseling and advice for contraceptive management: Status: Acute Comment: plan mirena IUD Orders: Orders HSV 1&2 IgG Today N94.6 - Dysmenorrhea, unspecified, Z20.2 - Contact with and (suspected) exposure to infections with a predominantly sexual mode of transmission, Z30.09 - Encounter for other general counseling and advice on contraception HIV Today N94.6 - Dysmenorrhea, unspecified, Z20.2 - Contact with and (suspected) exposure to infections with a predominantly sexual mode of transmission, Z30.09 - Encounter for other general counseling and advice on contraception Syphilis Antibodies Today N94.6 - Dysmenorrhea, unspecified, Z20.2 - Contact with and (suspected) exposure to infections with a predominantly sexual mode of transmission, Z30.09 - Encounter for other general counseling and advice on contraception Hepatitis C,RNA PCR Viral Load Today N94.6 - Dysmenorrhea, unspecified, Z20.2 -Contact with and (suspected) exposure to infections with a predominantly sexual mode of transmission, Z30.09 - Encounter for other general counseling and adviceon contraception Chlamydia/Neisseria PCR Today Z11.3 - Encounter for screening for infections with a predominantly sexual mode of transmission Plan Urine GCC and serum STD labs-call positive Discussed use, benefits, risks and side effects of mirena IUD and reviewed use of condoms. Written information given. RTO next menses for IUD insertion 09/15/24 1024 <Electronically signed by Maegan hartmann ASSISTANT PRODUCTION EDITOR ASSISTANT PRODUCTION EDITOR-C> Date _ Maegan Carranza NP ASSISTANT PRODUCTION EDITOR-C Cosigner Signature: Date (if applicable) CC: ~ [facility] Work Phone: Reason for referral (narrative) Note Date & Type Note Facility Reason for referral (narrative) No reason for referral information available [facility] Work Phone: Summary Purpose Family History Relationship Condition Age at Onset Recorded Date/T gustavo mother Diabetes mellitus Unknown Advance Directives Advance Directive Response Recorded Date/ Time Living Will No January 10 1 6:22pm Power of Felled Seam Operator No January 10, 2 021 6:22pm Advance Directive Response Recorded Date/ Time Living Will No April 10 3 6:12am Power of Felled Seam Operator No April 10, 2 023 6:12am Chief Complaint and Reason for Visit Chief Complaint discharge/itching Reason for Visit Vaginitis Chief Complaint DENTAL Chief Complaint Admit Date BC Consult September 15, 2024 9:53 am Reason for Visit Admit Date Dysmenorrhea September 15, 2024 9:53 am General counseling and advice for contra ceptive management September 15, 2024 9:53am Possible exposure to sexually transmitte d infection September 15, 2024 9:53am Additional Source Comments INFORMATION SOURCE (unrecogn ized section and content) DATE CREATED AUTHOR 09/25/2017 [facility] DATE CREATED AUTHOR AUTHOR'S ORGANIZ ATION 04/21/2020 [facility] DATE CREATED AUTHOR AUTHOR'S ORGANIZ ATION 05/07/2024 [facility] DATE CREATED AUTHOR AUTHOR'S ORGANIZ ATION 08/23/2024 [facility] Goals (unrecognized section and content) Goals may be documented in a n alternate sectionGoals may be documented in an alternate sectionGoals may be documented in an alternate section Care Teams (unrecognized sec tion and content) Team Status: Active Member Role Status Dates Dr. iDck Barnett MD Family Provider Active No Primary Care Physician Primary Care Provider Active Team Status: Inactive Member Role Status Dates No Primary Care Physician Primary Care Provider Active Start: September 15, 2024 End: September 15, 2024 No Primary Care Physician Referring Provider Active Start: September 15, 2024 End: September 15, 2024 Maegan Carranza NP, NP-C Attending Provider Active Start: September 15, 2024 End: September 15, 2024 Team Status: Active Member Role Status Dates No Primary Care Physician Primary Care Provider Active Start: September 15, 2024 Maegan Carranza NP ASSISTANT PRODUCTION EDITOR-C Attending Provider Active Start: September 15, 2024 Maegan Carranza NP, NP-C Referring Provider Active Start: September 15, 2024 FOR RECORDS PERTAINING TO PATIENTS WHO ARE OR HAVE BEEN ENROLLED IN A CHEMICAL DEPENDENCY/SUBSTANCEABUSE PROGRAM, SOME INFORMATION MAY BE OMITTED. This clinical summary was aggregated from multiple sources. Caution should be exercised in using it in the provision of clinical care. This summary normalizes information from multiple sources, and as a consequence, information in this document may materially change the coding, format and clinical context of patient data. In addition, data may be omitted in some cases. CLINICAL DECISIONS SHOULD BE BASED ON THE PRIMARY CLINICAL RECORDS. [facility] [employer] provides no warranty or guarantee of the accuracy or completeness of information in this document.
[2024-09-16 22:06] LABS: HCV Quant. RNA PCR HCV Not Detected IU/mL (.); HSV 1 IgG Non Reactive (Non Reactive); HSV 2 IgG Non Reactive (Non Reactive)
== END | disposition home or self-care (01) ==
PROVIDERS: Referring Provider Nurse Practitioner Women's Health; Visit Provider Nurse Practitioner Women's Health
DX: Z30.09 Encounter for other general counseling and advice on contraception (principal); Z20.2 Contact with and (suspected) exposure to infections with a predominantly sexual mode of transmission; N94.6 Dysmenorrhea, unspecified
CPT/HCPCS: 36415; 86695; 86696; 86703; 86780; 87491; 87522; 87591